=== PATIENT | male | born 1945 | race Caucasian/White ===

== ENCOUNTER 2021-07-31 14:26 | Outpatient (CLI) | payer MEDICARE, SELFPAY ==
--- NOTE | ~2021-07-31 | NM_ITS ---
EXAMINATION: NM thyroid scan w uptake DATE: 08/01/2021 15:32 INDICATION: Thyrotoxicosis COMPARISON: Thyroid ultrasound dated 10/01/[address] dated 11/05/2010 TECHNIQUE: 333 microcuries I-123 was administered orally in capsule form. Scintigraphic images of th e thyroid gland were obtained at 24 hours. Thyroid uptake was calculated by the technologist. FINDINGS: The thyroid uptake is 42.8% (normal 10-30%), with the right lobe measuring 39.7% uptake and the left 3.6%. Prominent increased uptake throughout the relatively enlarged right thyroid lobe which correspo nds to a similar large heterogeneous right thyroid mass on prior imaging suggesting a hyperfunctionin g nodule with suppression of uptake in the contralateral left thyroid lobe. IMPRESSION: 1. Increased total thyroid uptake which appears to result from a large hyperfunctioning right thyroi d mass with suppression of uptake in the left thyroid lobe. Reviewed, dictated and finalized at location A. IMPRESSION: 1. Increased total thyroid uptake which appears to result from a large hyperfu nctioning right thyroid mass with suppression of uptake in the left thyroid lob e.
== END 2021-07-31 14:27 | disposition home or self-care (01) ==
LOC: ANHIMG 14:31
PROVIDERS: PCP Family Medicine; Visit Provider Family Medicine
DX: E05.90 Thyrotoxicosis, unspecified without thyrotoxic crisis or storm (principal)
CPT/HCPCS: 78014; A9516

== ENCOUNTER 2021-08-14 13:41 | Outpatient (CLI) | payer MEDICARE, SELFPAY ==
--- NOTE | ~2021-08-14 | US_ITS ---
EXAMINATION: US FNA w image guidance DATE: 08/14/2021 14:43 INDICATION: Thyrotoxicosis with toxic single thyroid nodule TECHNIQUE: A time-out was performed to verify the patient's name, date of , and procedure to be performed . The procedure and its benefits and risks were discussed with the patient. Risks specifically discus sed included bleeding and infection. The patient understood the risks and agreed to proceed. The neck was prepped and draped in the usual sterile manner. 3 mL 1% lidocaine was used for local anesthesia . 5 passes were made with a 25G needle into the lesion. Appropriate needle location was documented with continuous sonographic guidance. The specimens were passed to the ocular care technologist in the room. A sterile bandage was applied. There were no immediate complications. FINDINGS: Grayscale ultrasound images demonstrate biopsy needles advanced into a 3.3 cm wider than tall solid h ypoechoic nodule with internal echogenic foci (TI-RADS 5, highly suspicious , FNA if >=1.0 cm, annual followup is >0.5 cm) in the right thyroid lobe which corresponds to the hyperfunctioning nodule iden tified on thyroid scintigraphy. IMPRESSION: 1. Successful ultrasound-guided fine needle aspiration of a 3.3 cm TI-RADS 5 right thyroid nodule of concern.. Reviewed, dictated and finalized at location A. IMPRESSION: 1. Successful ultrasound-guided fine needle aspiration of a 3.3 cm TI-RADS 5 r ight thyroid nodule of concern..
== END 2021-08-14 13:42 | disposition home or self-care (01) ==
PROVIDERS: PCP Family Medicine; Visit Provider Family Medicine
DX: E05.10 Thyrotoxicosis with toxic single thyroid nodule without thyrotoxic crisis or storm (principal)
CPT/HCPCS: 10005; 88173; 88305

== ENCOUNTER 2021-09-15 07:58 | Outpatient (CLI) | payer MEDICARE, SELFPAY ==
--- NOTE | 2021-09-15 08:00 | ECG_ITS ---
Measurements Intervals [place] Rate: 68 P: 66 IN: 198 QRS: 64 QRSD: 113 T: 54 QT: 398 QTc: 426 Interpretive Statements SINUS RHYTHM INTRAVENTRICULAR CONDUCTION DELAY BASELINE ARTIFACT- I, III, AVR, AVL BORDERLINE ECG Electronically Signed On 09-15-2021 8:55:19 [employer] by Javi Moore D.O.
[2021-09-15 09:02] LABS: Anion Gap 5 mmol/L (8-16); Blood Urea Nitrogen 22 mg/dL (9-20); Calcium 10.1 mg/dL (8.4-10.2); Carbon Dioxide 29 mmol/L (22-30); Chloride 106 mmol/L (98-107); Estimated Glomerular Filt Rate > 60; Glucose 106 mg/dL (65-110); Sodium 140 mmol/L (137-145)
== END 2021-09-15 07:59 | disposition home or self-care (01) ==
LOC: ANHSURGERY 08:01
PROVIDERS: Anesthesiology; PCP Family Medicine; Visit Provider Otolaryngology
DX: I10 Essential (primary) hypertension (principal); Z79.899 Other long term (current) drug therapy; Z01.818 Encounter for other preprocedural examination; I45.9 Conduction disorder, unspecified
CPT/HCPCS: 36415; 80048; 93005

== ENCOUNTER 2021-09-19 01:03 | Day surgery (SDC) | payer MEDICARE, SELFPAY ==
[2021-09-11 10:52] VITALS: BMI 29.2
--- NOTE | 2021-09-11 11:04 | PC.NURSE ---
Report to the Outpatient Waiting Room, entrance under the green pavilion located off [facility], at time _0600_ on date _09/19/21_. OR Time: _0730__. - You and your visitor will be asked a series of questions to screen for COVID 19 for your protection. - A mask is required within the hospital. - Only one visitor is allowed at this time. Patient visitors will be guided where to wait when not with patient. Preoperative COVID Testing Requirements: No COVID Test needed if: (proof is required; if not received patient will have Rapid Test prior to entry) - Patient has received COVID Vaccine at least 14 days prior to procedure date or - Patient has positive COVID test result within last 90 days of surgery date. COVID Test needed if above criteria is not met If not COVID vaccinated a COVID test must be conducted within 72 hours of surgery and patient is asked to isolate self from time of testing until procedure. You will go to the [facility] for your COVID testing. The [facility] is located at the corner of [address] [facility]. You will only be called if COVID results are positive and your surgeon may reschedule your elective surgery date. Patients may have clear liquids (water, carbonated beverages, clear teas, apple juice) until 3 hours prior to surgery with a maximum of 20 ounces. - No food from midnight until time of surgery - Infants may have breast milk until 4 hours before surgery, formula 6 hours prior to surgery. - Children will be allowed to drink immediately following surgery. If applicable, please bring a bottle or sippy cup to assist with drinking. Juice, water, soda, and popsicles are readily available. For infants on formula, please bring formula the day of surgery. Pacifiers are allowed. Take the following medications with a SIP of water the morning of surgery: ___NONE Medications to discontinue per physician __ASPIRIN & NAPROXEN PER DR. MENDIOLA, ALL VITAMINS & SUPPLEMENTS -3 DAYS PRIOR PER ANESTHESIA Date to take last dose___09/15/21 Please no make-up, nail new zealander, hairspray, perfume, deodorant, or body powder the day of surgery. No jewelry (including any body piercings) or valuables the day of surgery, leave them at home. Please take a shower or bath the night before, or the morning of, surgery with an antibacterial soap. Wear comfortable, loose fitting clothing. Children are encouraged to wear pajamas. - Jewelry must be removed prior to entering the operating room. Rings and piercings that are not removed may be cut off. - The hospital will not accept responsibility for valuables. - Please leave all valuables, including medications, at home the day of surgery. If you are going home after surgery, a licensed electric truck driver must drive you home. - NO public transportation without another adult. - We recommend that an adult stay with you for 24 hours following discharge. - We also recommend that you do not drive, make important decision, drink alcoholic beverages, or take any drugs that were not prescribed by your health care provider for at least 24 hours after your discharge time. For Pediatric surgeries, we recommend two adults accompany the child home (only one inside the building at this time). Follow any additional instructions given to you from your surgeon. Telephone instructions given to __PT___and asked if any additional questions and then verbalized understanding. Patient advised to call surgeon office or pre surgery nurse liaison [phone] if any additional questions.
--- NOTE | 2021-09-18 13:43 | WPDANESEPPF ---
Anes - Initial Pre Proc Eval Procedure: Operation Date: 09/19/21 07:30 Proposed Procedures p Right Thyroidectomy - Feliberto Ward MD Date/Time: 09/18/21 13:43 Surgeon: Feliberto Ward MD Pre Op Diagnosis: right thyroid nodule Patient Data Age: 75 Gender: M Height: 1.82 m Weight: 96.59 kg Allergies Allergy/AdvReac Type Severity Reaction Status Date / Time morphine Allergy Mild Nausea Verified 09/19/21 06:17 house dust Allergy Unknown Sneezing Verified 09/19/21 06:17 mold Allergy Unknown Sneezing Verified 09/19/21 06:17 Home Medications Medication Instructions Recorded Confirmed Type ascorbic acid (vitamin C) 500 mg 500 mg PO DAILY PRN 10/09/19 09/19/21 History tablet aspirin 81 mg tablet,delayed 81 mg PO DAILY 10/09/19 09/19/21 History release montelukast 10 mg tablet 10 mg PO DAILY PRN #90 tablet 02/19/20 09/19/21 Rx triamcinolone acetonide 55 mcg 1 spray INTRANASAL DAILY PRN 08/17/20 09/19/21 History nasal spray aerosol lisinopril 10 See Rx Instructions .ROUTE 12/09/20 09/19/21 Rx mg-hydrochlorothiazide 12.5 mg .COMPLEX #90 tablet tablet naproxen 500 mg tablet 500 mg PO BID PRN #60 tablet 02/02/21 09/19/21 Rx trazodone 50 mg tablet 50 mg PO .COMPLEX #180 tablet 02/02/21 09/19/21 Rx [id number]-[id number]-D3-C-Mn 1 cap PO DAILY 09/11/21 09/19/21 History loratadine [Claritin] 10 mg PO DAILY 09/11/21 09/19/21 History multivitamin [Multi-Vitamin] 1 tablet PO DAILY 09/11/21 09/19/21 History Patient hx anesthesia problems: none Family hx anesthesia problems: none Results Review: All pre-operative results and documents have been reviewed as part of the pre-operative evaluation. [facility] Past Medical History Medical History Arthritis of knee BMI 29.0-29.9,adult Chondrocalcinosis of left knee Essential (primary) hypertension Gastro-esophageal reflux disease without esophagitis Malignant neoplasm of brain, unspecified Occlusion and stenosis of unspecified carotid artery doppler in 2018 was normal Prostate cancer Thyroid nodule, toxic or with hyperthyroidism Surgical History Surgical History H/O brain surgery 2012, Dr. Bass H/O hernia repair H/O prostatectomy 1999 cancer History of back surgery Family History Family History Sibling Diabetes mellitus Family history of hypercholesterolemia Hypertension Family history of cardiovascular disease Cerebrovascular accident Family history of chronic obstructive pulmonary disease Father Family history of cardiovascular disease Mother Family history of cardiovascular disease Other Family history of osteoarthritis Social History Social History Smoking packs per day: 1 Smoking cigarettes per day: 20.0 Years smoked: 25 Smoking pack-years: 25.00 Smoking status: Former smoker Tobacco type: cigarettes Second hand tobacco smoke exposure: No Smoking end date: 08/04/00 Alcohol intake: current Drinks per week: 18 Substance use: never Substance use type: does not use Living arrangements: with friend(s) Gender identity (if verbalized by the patient): Male Spiritual care concerns: No Anes - Eval Final PreProcedure Day of Procedure 09/18/21 13:43 Patient weight: overweight Heart: regular rate and rhythm Lungs: clear to auscultation and normal air movement Airway: Mallampati scale class II Neurological: alert and oriented Last oral intake: >/= 8 hours ASA classification: III Emergent: no Anesthetic plan: proceed Anesthesia type and monitoring: general ETT Results Review: All pre-operative results and documents have been reviewed as part of the pre-operative evaluation. Informed Consent: The patient's anesthetic plan and its attendant risks and benefits were
[2021-09-19] VITALS (8 sets, daily range): BP systolic 126–149; BP diastolic 66–89; PULSE 74–89; RESP 12–18; TEMP 36.3–36.8; O2SAT 96–99
--- NOTE | 2021-09-19 05:42 | PM.HPGS ---
History of Present Illness History of Present Illness Consent: Risks, benefits, and alternatives have been discussed and questions answered. Patient agrees to proceed with procedure. Chief complaint: right thyroid nodule Narrative: Fransico Aaron is a 75 year old male with a that a right thyroid nodule suppressing the rest of the gland Review of Systems Review of Systems: All systems reviewed & are unremarkable except as noted in HPI and below PMFSH Past Medical History Medical History Arthritis of knee BMI 29.0-29.9,adult Chondrocalcinosis of left knee Essential (primary) hypertension Gastro-esophageal reflux disease without esophagitis Malignant neoplasm of brain, unspecified Occlusion and stenosis of unspecified carotid artery doppler in 2018 was normal Prostate cancer Thyroid nodule, toxic or with hyperthyroidism Surgical History Surgical History H/O brain surgery 2012, Dr. Bass H/O hernia repair H/O prostatectomy 1999 cancer History of back surgery Family History Family History Sibling Diabetes mellitus Family history of hypercholesterolemia Hypertension Family history of cardiovascular disease Cerebrovascular accident Family history of chronic obstructive pulmonary disease Father Family history of cardiovascular disease Mother Family history of cardiovascular disease Other Family history of osteoarthritis Social History Social History Smoking packs per day: 1 Smoking cigarettes per day: 20.0 Years smoked: 25 Smoking pack-years: 25.00 Smoking status: Former smoker Tobacco type: cigarettes Second hand tobacco smoke exposure: No Smoking end date: 08/04/00 Alcohol intake: current Drinks per week: 18 Substance use: never Substance use type: does not use Living arrangements: with friend(s) Gender identity (if verbalized by the patient): Male Spiritual care concerns: No Meds Home Medications and Allergies Home Medications Medication Instructions Recorded Confirmed Type ascorbic acid (vitamin C) 500 mg 500 mg PO DAILY PRN 10/09/19 09/11/21 History tablet aspirin 81 mg tablet,delayed 81 mg PO DAILY 10/09/19 09/11/21 History release montelukast 10 mg tablet 10 mg PO DAILY PRN #90 tablet 02/19/20 09/11/21 Rx triamcinolone acetonide 55 mcg 1 spray INTRANASAL DAILY PRN 08/17/20 09/11/21 History nasal spray aerosol lisinopril 10 See Rx Instructions .ROUTE 12/09/20 09/11/21 Rx mg-hydrochlorothiazide 12.5 mg .COMPLEX #90 tablet tablet naproxen 500 mg tablet 500 mg PO BID PRN #60 tablet 02/02/21 09/11/21 Rx trazodone 50 mg tablet 50 mg PO .COMPLEX #180 tablet 02/02/21 09/11/21 Rx [id number]-[id number]-D3-C-Mn 1 cap PO DAILY 09/11/21 09/11/21 History loratadine [Claritin] 10 mg PO DAILY 09/11/21 09/11/21 History multivitamin [Multi-Vitamin] 1 tablet PO DAILY 09/11/21 09/11/21 History Allergies Allergy/AdvReac Type Severity Reaction Status Date / Time house dust Allergy Unknown Sneezing Verified 09/11/21 10:45 mold Allergy Unknown Sneezing Verified 09/11/21 10:45 morphine Allergy Unknown Nausea Verified 09/11/21 10:45 Exam Narrative: Chest clear heart without murmurs abdomen soft palpable right thyroid nodule Assessment and Plan Additional Plan [place] is a right thyroidectomy
--- NOTE | 2021-09-19 05:44 | WPDHPUPDATE1 ---
History and Physical Update Update Date/Time: 09/19/21 05:44 History and Physical has been reviewed, including an updated exam of the patient. There are NO changes in the patient's condition. Risks, benefits, and alternatives have been discussed and questions answered. Patient agrees to proceed with procedure.
[2021-09-19] MEDS: ACETAMINOPHEN 500 MG TABLET 1000 MG PO (06:49)
[2021-09-19] MEDS: LACTATED RINGERS 1,000 ML 30 ML IV CONT (07:02)
[2021-09-19] MEDS: ceFAZolin 2 GM/D5W 50 ML 2 GM/50 ML BAG IVPB (07:24)
[2021-09-19] MEDS: LIDO 1%/EPINEPHRINE 1:100,000 50 ML VIAL INFILTRATE (07:39)
--- NOTE | 2021-09-19 08:28 | W.PM.PROC2 ---
Procedure Note - Detailed Date of Procedure 09/19/21 Pre-op Diagnosis right thyroid nodule Post-op Diagnosis same Procedure Performed Partial right thyroidectomy Surgeon Feliberto Ward MD Description of Procedure Patient was prepped and draped fashion general anesthesia low collar incision was made subplatysmal flaps elevated the right thyroid nodule was identified immediately upon retracting the strap muscles this nodule was removed as was a small nodule inferiorly sent for pathologic examination benign on both sides incision closed in layers of 4-0 chromic in the and glue
[2021-09-19] MEDS: ONDANSETRON INJ 4 MG/2 ML VIAL IV PUSH (08:51)
--- NOTE | 2021-09-19 09:52 | SUR.PHASEII ---
0952- Call to Dr. Ward to clarify when patient can resume home aspirin regimen. Per Dr. Ward patient can resume tomorrow 09/20/2021.
== END 2021-09-19 10:06 | disposition home or self-care (01) ==
PROVIDERS: PCP Family Medicine; Visit Provider Otolaryngology
PROC: (CPT 60210; principal; 2021-09-19 07:30)
DX: E04.2 Nontoxic multinodular goiter (principal); I10 Essential (primary) hypertension; K21.9 Gastro-esophageal reflux disease without esophagitis; Z85.46 Personal history of malignant neoplasm of prostate; Z85.841 Personal history of malignant neoplasm of brain; Z79.82 Long term (current) use of aspirin; Z87.891 Personal history of nicotine dependence
CPT/HCPCS: 60210; 36415; 80048; 88305; 88331; 93005; A9270; J0690; J1100; J1170; J2250; J2405; J2704; J3010; J7120

== ENCOUNTER 2022-02-02 09:30 | Outpatient (RCR) | payer MEDICARE, SELFPAY ==
--- NOTE | 2021-11-15 09:09 | PTOPEVAL ---
PHYSICAL THERAPY EVALUATION AND PLAN OF CARE 11-15-21 Thank you for referring Fransico Aaron to [facility], for the diagnosis of s/p R shoulder replacement. The office of Dr. Morfin was contacted and Joseph verbally gave the protocol for PT: Wean off of sling, NO shoulder IR, limit shoulder ER to 30', progression of exercises: passive, active assisted and active as tolerated. Fransico is scheduled to be seen for therapy? 2 x/week for 4 weeks. Please review, sign, date and return this plan of care PRO. I agree with and certify that the following plan of care is medically necessary. 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 Hx Other Neurological Disorders Yes: NEUROLOGIST DR CORDOVA Cardiovascular History Hx Hypertension Yes: meds Respiratory History Hx COVID-19 Yes: maybe had this fall Gastrointestinal History Hx Hernia Yes: RT INGUINAL HERNIA REPAIR Genitourinary History Hx Prostatectomy Yes: 2000 Musculoskeletal History Hx Arthritis Yes: knees, hips, hands Hx Other Musculoskeletal Disorders Yes: Restless leg syndrome, BILAT KNEE INJ Hematological History Hx Hematological Disorders No Significant History Endocrine History Hx Other Endocrine Disorders Yes: RT THYROID NODULE- removed HEENT History Hx Sinus Problems Yes: SEASONAL ALLERGIES Hx Other HEENT Disorders Yes: GLASSES Integumentary History Hx Excision Skin Lesion Yes: SKIN CA REMOVED FROM BACK Hx Other Skin Disorders Yes: SKIN CA Reproductive History Hx Other Reproductive Disorders Yes: VASECTOMY, LT BREAST LUMPECTOMY=BENIGN, ERECTILE DYSFUNCTION Psychosocial History Hx Psychiatric Disorders No Significant History Anesthesia History Hx Anesthesia Reactions No Significant History Other History Hx Cancer Yes: PROSTATE, SKIN Evaluation Information Problem Diagnosis s/p R total shoulder replacement Onset surgery 10-24-21 Subjective Information per pt- only restriction dr Query Text:As Reported By Patient/ office told him was not to Family abduct shoulder; is doing pendulum exercises and elbow flexion/extension for the past week; no longer using sling;
--- NOTE | 2021-12-08 10:07 | PCPTNOTE ---
pt called and canceled due to bad weather;
--- NOTE | 2021-12-12 13:20 | PTOPEVAL ---
PHYSICAL THERAPY RE-EVALUATION 12-12-21 Refer to the clinical summary below, for his status today, compared to the initial evaluation. Fransico has improved in all areas and remains motivated to improve his shoulder. PT treatment is scheduled to continue, 2x/wk for 5 weeks. Will progression to strengthening when orders received. He has a follow up dr appointment in 2 weeks. Thank you for referring Fransico Aaron to [facility] [place][Note 2].? Please review, sign, date and return this plan of care PRO. I agree with and certify that the following plan of care is medically necessary. Referring Physician Date Attending Provider: Tete Price PA-C Assessment Status Re-evaluation Subjective Information Fransico reports: sometimes Query Text:As Reported By Patient/ shoulder hurts and not sure Family why, but does not last very long; arm is stronger and more mobility; using arm more for showering, light home tasks; anxious to get shoulder better and golf again ; doing home exercises without any problems; Pain Pain Scale Used Numeric (1 - 10) Self Report Pain Assessment Right Shoulder(s) Reported Pain Level 0 Pain Description Aching Pain Frequency Chronic,Intermittent Other Pain Description anterior and lateral GH joint Lowest Pain Intensity 0 Greatest Pain Intensity 2 Pain Aggravating Factors Exercise/Activity Pain Score Pain Score 0: Self Report Additional Pain Score Comments have not used heat/ice lately, no needed; can sleep in bed, can lie on R side ~ 2-2 & 1/2 hours; Interventions Used Interventions Used By Clinicians Education,Exercise Pain Relief Interventions Used By Inactivity/Rest,Position Patient Change,Support of Extremity Other Alleviating Interventions no pain meds for shoulder--do take for back--naproxen; Scapular/ Shoulder Range of Motion Right Reason Not Measured WNL/Left Shoulder Flexion - Active 105 Shoulder Flexion - Passive 130 Shoulder Lateral Rotation - Active 25 Shoulder Lateral Rotation - Passive 30 Scapular/Shoulder Range of Motion R elbow, wrist and finger Comments ranges WNL and no pain; warm up exercises prior to measurement scaption: supine stretch 100' /active standing 70'; per protocol: ER to 30; and NO IR; Gross Upper Extremity Strength Comments function
--- NOTE | 2021-12-15 11:50 | PCPTNOTE ---
called Dr Morfin's office and left a message with career placement specialist - ? when can begin resisted/strengthening exercises and can pt start simulated golf swing? she stated they will check with and return call.
--- NOTE | 2021-12-18 11:46 | PCPTNOTE ---
LATE entry: received phone call 12-15-21 from office, stated pt can begin strengthening, theraband OK to use; can perform golf swing after 2 weeks of strengthening. This info was discussed with pt during treatment session today, 12-18-21
[2022-01-12 09:04] VITALS: BP_SYST 75
--- NOTE | 2022-01-12 09:53 | PTOPEVAL ---
PHYSICAL THERAPY RE-EVALUATION AND UPDATED PLAN OF CARE 01-12-22 Refer to the clinical summary below, for his status today, compared to the last reeval. The goals were partially achieved. Continue PT treatments 2x/wk for 3 weeks. Thank you for referring Fransico Aaron to [facility].? Please review, sign, date and return this updated plan of care [facility]. I agree with and certify that the following plan of care is medically necessary. Referring Physician Date Attending Provider: Tete Price, PAC Document 01/12/22 09:04 NOELLE (Rec: 01/12/22 09:53 NOELLE [id number] Subjective Information Fransico reports: shoulder is not Query Text:As Reported By Patient/ able to do as much as he Family would like with his shoulder-- reach up higher overhead; working on trying to use the R arm more around the house; have been doing some golf swings at home; released from but was not really told any further information; want to continue therapy; Pain Assessment Timing of Pain Assessment Timing of Pain Assessment Assessment Pain Scale Pain Scale Used Numeric (1 - 10) Self Report Pain Assessment Right Shoulder(s) Reported Pain Level 0 Pain Description Sharp Radicular Pain Location anterior and lateral shoulder; Pain Frequency Chronic,Intermittent Other Pain Description have short period of pain in shoulder3- 5 min,not able to relate to activity Lowest Pain Intensity 0 Greatest Pain Intensity 3 Pain Aggravating Factors Exercise/Activity Pain Behaviors Anxious,Guarding Pain Score Pain Score 0: Self Report Additional Pain Score Comments have bursitis of R elbow-- using ice on it Interventions Used Interventions Used By Clinicians Education,Exercise Pain Relief Interventions Used By Inactivity/Rest,Position Patient Change Other Alleviating Interventions no pain meds; no heat or ice; Upper Extremity Range of Motion Scapular/ Shoulder Range of Motion Right Reason Not Measured WNL/Left Shoulder Flexion - Active 120 Shoulder Flexion - Passive 140 Shoulder Abduction - Active 50 Shoulder Abduction - Passive 75 Shoulder Medial Rotation - Active thumb to R SIJ Query Text:Reach Behind the Back Shoulder Lateral Rotation - Active 30 Shoulder Lateral Rotation - Passive 35 Shoulder Lateral Rotation - Active fingers to back of head Query Text:Reach Behind the Head Scapular/Shoulder Range of Motion R elbow, wrist and fin
[2022-02-02 09:25] VITALS: BP_SYST 125
--- NOTE | 2022-02-02 10:21 | PTOPEVAL ---
PHYSICAL THERAPY DISCHARGE 02-02-22 Refer to the clinical summary below, for his status today, compared to the last reevaluation. The goals were partially achieved. He will be discharged at this time, and to continue to do his home exercise program. Thank you for referring Fransico Aaron to [facility].? Please review, sign, date and return this Discharge report PRO. I agree with and certify that the following plan of care is medically necessary. Referring Physician Date Attending Provider: PRASHANT Hinkle Subjective Information Fransico reports: shoulder is not Query Text:As Reported By Patient/ as tight in the front--looser Family and not as sore; is happy with the whole process and how the shoulder is doing; able to reach to top shelf in kitchen, using R arm more, sometimes hurts at the highest point of reaching, but OK; have hit practice golf balls in the back yard, due to weather, have not been out to the course yet; doing all the exercises at home, using green theraband; feel like ready to be done with therapy and continue at home with exercises; Pain Assessment Pain Scale Pain Scale Used Numeric (1 - 10) Self Report Pain Assessment Right Shoulder(s) Reported Pain Level 1 Pain Description Aching,Soreness Pain Frequency Chronic,Intermittent Lowest Pain Intensity 0 Greatest Pain Intensity 3 Pain Aggravating Factors Exercise/Activity Pain Score Pain Score 1: Self Report Additional Pain Score Comments saw yesterday about R elbow swelling---given zpac and to take naproxen 2x/day; Interventions Used Interventions Used By Clinicians Education,Exercise Pain Relief Interventions Used By Inactivity/Rest Patient Right Shoulder Flexion - Active 120 Shoulder Flexion - Passive 140 Shoulder Abduction - Active 110 Shoulder Abduction - Passive 125 Shoulder Medial Rotation - Active R palm to R SIJ Query Text:Reach Behind the Back Scapular/Shoulder Range of Motion supine R shoulder ER 40' Comments active ROM active shoulder ROM in standing/ passive in supine reports tight, but not pain with shoulder motions; decreased scapula
== END 2022-02-05 15:32 | disposition home or self-care (01) ==
LOC: ANHPT 09:30
PROVIDERS: PCP Family Medicine
DX: Z47.1 Aftercare following joint replacement surgery (principal); Z96.611 Presence of right artificial shoulder joint
CPT/HCPCS: 97035; 97110; 97112; 97140; 97161; 97530

== ENCOUNTER 2022-06-25 17:38 | Emergency (ER) | payer MEDICARE, SELFPAY ==
[2022-06-25 17:44] VITALS: BP 153/64; PULSE 82; RESP 16; TEMP 36.7; O2SAT 99
--- NOTE | 2022-06-25 18:07 | ED.WOUNDLAC ---
HPI - Wound/Laceration General Chief Complaint: Wound/Laceration Stated Complaint: lac left thumb Time Seen by Provider: 06/25/22 18:07 Source: patient and RN notes reviewed Mode of arrival: ambulatory Limitations: no limitations History of Present Illness HPI narrative: 76-year-old male presents to [facility] with a partial avulsion of skin to the lateral left thumb. Patient states he was cutting potatoes when the potato moved and he got his thumb. Per medical record last Tdap 08/04/2014 Related Data Home Medications Medication Instructions Recorded Confirmed ascorbic acid (vitamin C) 500 mg 500 mg PO DAILY PRN TAKES ONLY 10/09/19 06/25/22 tablet DURING WINTER MONTH aspirin 81 mg tablet,delayed 81 mg PO DAILY 10/09/19 06/25/22 release triamcinolone acetonide 55 mcg 1 spray intranasal DAILY PRN 08/17/20 06/25/22 nasal spray aerosol (Nasacort) Congestion glucosamine 500 1 cap PO DAILY 09/11/21 06/25/22 fc-pwwmpxxjh-fcafqylo comp 400 mg-D3 667 unit-C-Mn cap multivitamin 1 tablet PO DAILY 09/11/21 06/25/22 fexofenadine 180 mg tablet 180 mg PO DAILY 06/18/22 06/25/22 Allergies Allergy/AdvReac Type Severity Reaction Status Date / Time house dust Allergy Unknown Sneezing Verified 06/25/22 17:48 mold Allergy Unknown Sneezing Verified 06/25/22 17:48 morphine AdvReac Mild Nausea Verified 06/25/22 17:48 Review of Systems Review of Systems: All systems reviewed & are unremarkable except as noted in HPI and below Constitutional: Constitutional: Reports no additional constitutional complaints, Denies chills and Denies fever(s) Eyes: Eyes: Reports no additional eye complaints ENT: Reports system reviewed and no additional complaints, except as documented Cardiovascular: Cardiovascular: Reports no additional cardiovascular complaints Respiratory: Respiratory: Reports no additional respiratory complaints Gastrointestinal: Gastrointestinal: Reports no additional gastrointestinal complaints Musculoskeletal: Musculoskeletal: Reports no additional musculoskeletal complaints Integumentary/Breasts: Skin/Breast: Reports as per HPI (Laceration left thumb) Neurologic: Reports system reviewed and no additional complaints, except as documented Psychiatric: Psychiatric: Reports no additional psychiatric complaints Allergic/Immunologic: Allergic/Immunologic: Reports no additional allergic/immunologic complaints [facility] Past Medical History Medical History Arthritis of knee BMI 29.0-29.9,adult Chondrocalcinosis of left knee Essential (primary) hypertension Gastro-esophageal reflux disease without esophagitis Malignant neoplasm of brain, unspecified Occlusion and stenosis of unspecified carotid artery doppler in 2018 was normal Prostate cancer Thyroid nodule, toxic or with hyperthyroidism Surgical History Surgical History H/O brain surgery 2012, Dr. Bass H/O hernia repair H/O prostatectomy 1999 cancer History of back surgery Family History Family History Sibling Diabetes mellitus Family history of hypercholesterolemia Hypertension Family history of cardiovascular disease Cerebrovascular accident Family history of chronic obstructive pulmonary disease Father Family history of cardiovascular disease Mother Family history of cardiovascular disease Other Family history of osteoarthritis Social History Social History Smoking packs per day: 1 Smoking cigarettes per day: 20.0 Years smoked: 25 Smoking pack-years: 25.00 Smoking status: Former smoker Tobacco type: cigarettes Second hand tobacco smoke exposure: No Smoking end date: 08/04/00 Alcohol intake: current Drinks per week: 18 Substance use: never Substance use type: does not use Gender identity (if
[2022-06-25] MEDS: TETANUS/DIPHTHERIA TOXOIDS ADSORB 0.5 ML VIAL (*BKC) IM (19:05)
== END 2022-06-25 19:10 | disposition home or self-care (01) ==
PROVIDERS: Emergency Provider Nurse Practitioner; PCP Family Medicine
DX: S61.012A Laceration without foreign body of left thumb without damage to nail, initial encounter (principal); W45.8XXA Other foreign body or object entering through skin, initial encounter; Y93.G9 Activity, other involving cooking and grilling; Z23 Encounter for immunization; Z87.891 Personal history of nicotine dependence; I10 Essential (primary) hypertension; K21.9 Gastro-esophageal reflux disease without esophagitis; Z85.841 Personal history of malignant neoplasm of brain; Z85.46 Personal history of malignant neoplasm of prostate; Z90.79 Acquired absence of other genital organ(s)
CPT/HCPCS: 12001; 90471; 90714; 99213; G0463

== ENCOUNTER 2022-09-06 13:41 | Outpatient (CLI) | payer MEDICARE, SELFPAY ==
--- NOTE | ~2022-09-06 | NM_ITS ---
EXAMINATION: NM thyroid scan w uptake DATE: 09/07/2022 15:13 INDICATION: Hyperthyroidism. COMPARISON: Thyroid scintigraphy 07/24/2021, thyroid ultrasound 08/14/21 TECHNIQUE: 0.344 mCi I-123 was administered orally. Scintigraphic images of the thyroid gland were o btained at 24 hours. Thyroid uptake was calculated by the technologist. FINDINGS: The thyroid uptake is 46% (normal 10-30%), with the right lobe measuring 42% uptake and the left 4%. Increased activity in right thyroid lobe correlates with a nodule occupying the majority of the right thyroid lobe by ultrasound. Ultrasound-guided fine-needle aspiration on 08/15/2021 was benign. Parti al right thyroidectomy on 09/19/2021 was benign. IMPRESSION: 1. 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 Reviewed, dictated and finalized at location A.
== END 2022-09-06 13:42 | disposition home or self-care (01) ==
PROVIDERS: PCP Family Medicine; Visit Provider Family Medicine
DX: E05.10 Thyrotoxicosis with toxic single thyroid nodule without thyrotoxic crisis or storm (principal)
CPT/HCPCS: 78014; A9516

== ENCOUNTER 2023-01-07 11:11 | Outpatient (CLI) | payer MEDICARE, SELFPAY ==
--- NOTE | ~2023-01-07 | US_ITS ---
EXAMINATION: US thyroid DATE: 01/07/2023 11:59 INDICATION: Nontoxic single thyroid nodule. TECHNIQUE: Multiple ultrasound images of the thyroid were obtained. COMPARISON: Ultrasound 09/23/2010, 08/14/21 FINDINGS: The right thyroid lobe measures 6.0 x 3.5 x 3.7 cm. The left thyroid lobe measures 4.2 x 1.8 x 1.8 c m. In the right thyroid lobe, there is a 3.5 cm solid, isoechoic, wider than tall nodule with lobula r margin and punctate echogenic foci (TI-RADS TR5), stable from 10/01/10 and status post benign biops y on 08/15/21. In the left thyroid lobe, there is a 13 mm solid, isoechoic, wider than tall nodule wi th ill-defined margin and punctate echogenic foci (TR4), stable from 10/01/10. IMPRESSION: 1. Chronic benign thyroid nodules. Reviewed, dictated and finalized at location A. 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
== END 2023-01-07 11:12 | disposition home or self-care (01) ==
PROVIDERS: PCP Family Medicine; Visit Provider Otolaryngology
DX: E04.2 Nontoxic multinodular goiter (principal)
CPT/HCPCS: 76536

== ENCOUNTER 2023-02-08 08:58 | Outpatient (CLI) | payer MEDICARE, SELFPAY ==
--- NOTE | 2023-02-08 09:20 | ECG_ITS ---
Measurements Intervals [place] Rate: 73 P: 71 MA: 206 QRS: 70 QRSD: 122 T: 52 QT: 386 QTc: 427 Interpretive Statements SINUS RHYTHM MODERATE INTRAVENTRICULAR CONDUCTION DELAY BORDERLINE ECG COMPARED TO ECG 09/15/2021 08:21:52 NO SIGNIFICANT CHANGES Electronically Signed On 02-09-2023 14:50:03 CDT by Bj Pierre M.D.
[2023-02-08 09:46] LABS: Anion Gap 6 mmol/L (8-16); Blood Urea Nitrogen 16 mg/dL (9-20); Calcium 9.3 mg/dL (8.4-10.2); Carbon Dioxide 31 mmol/L (22-30); Chloride 100 mmol/L (98-107); Estimated Glomerular Filt Rate > 60; Glucose 139 mg/dL (65-110); Potassium 4.3 mmol/L (3.4-5.0); Sodium 137 mmol/L (137-145)
== END 2023-02-08 08:59 | disposition home or self-care (01) ==
LOC: ANHSURGERY 09:02
PROVIDERS: Anesthesiology; PCP Family Medicine; Visit Provider Otolaryngology
DX: I10 Essential (primary) hypertension (principal); Z51.81 Encounter for therapeutic drug level monitoring; Z01.818 Encounter for other preprocedural examination
CPT/HCPCS: 36415; 80048; 93005

== ENCOUNTER 2023-02-12 01:36 | Day surgery (SDC) | payer MEDICARE, SELFPAY ==
[2023-02-05 13:40] VITALS: BMI 29.9
--- NOTE | 2023-02-05 15:25 | PC.NURSE ---
Report to the Outpatient Waiting Room, entrance under the green pavilion located off [facility], at time __9:30AM on date __02/12/23 . Planned Procedure Time: __11:30AM . Time changes happen often and if your time is changed the preop area will call you the afternoon before. - You and your visitor will be asked to self-screen and do not enter if you have any COVID symptoms. - Only one visitor is requested with a max of two and NO children visitors are allowed at this time. - The patient visitor may be requested to leave or wait in car when not with patient due to distancing restrictions. - A mask is optional within the hospital at this time. Patients may have clear liquids (water, carbonated beverages, clear teas, apple juice) until 3 hours prior to surgery with a maximum of 20 ounces. - No food from midnight until time of surgery Take the following medications with a SIP of water the morning of surgery: ____METHIMAZOLE, NASAL SPRAY NEEDED DO NOT STOP ANY OF YOUR OTHER PRESCRIPTION MEDICATIONS PRIOR TO SURGERY ?EXCEPT THE FOLLOWING Medications to discontinue per physician __HOLD ASPIRIN PER DR WALKER(PT IS CALLING OFFICE TO [facility]). HOLD VITAMINS/SUPPLEMENTS 3 DAYS PER ANESTHESIA0 LAST DOSE 02/08/23 Please no make-up, nail estonian, hairspray, perfume, deodorant, or body powder the day of surgery. No jewelry (including any body piercings) or valuables the day of surgery, leave them at home. Please take a shower or bath the night before, or the morning of, surgery with an antibacterial soap. Wear comfortable, loose fitting clothing. Children are encouraged to wear pajamas. - Jewelry must be removed prior to entering the operating room. Rings and piercings that are not removed may be cut off. - The hospital will not accept responsibility for valuables. - Please leave all valuables, including medications, at home the day of surgery. If you are going home after surgery, a licensed jitney driver must drive you home. - NO public transportation without another adult if you receive anesthesia. - We recommend that an adult stay with you for 24 hours following discharge. - We also recommend that you do not drive, make important decision, drink alcoholic beverages, or take any drugs that were not prescribed by your health care provider for at least 24 hours after your discharge time. Follow any additional instructions given to you from your surgeon. If you or anyone in your household have experienced Covid symptoms in the past week, please notify your surgeon or the nurse liaison at the phone number below for possible testing. Telephone instructions given to __PATIENT and asked if any additional questions and then verbalized understanding. Patient advised to call surgeon office or pre surgery nurse liaison [phone] if any additional questions.
--- NOTE | 2023-02-11 14:06 | WPDANESEPPF ---
Anes - Initial Pre Proc Eval Procedure: Operation Date: 02/12/23 12:00 Proposed Procedures p Right Thyroidectomy - Victor M Marie MD Date/Time: 02/11/23 14:06 Surgeon: Victor M Marie MD Pre Op Diagnosis: Right Thyroid Nodule Patient Data Age: 77 Gender: M Height: 1.82 m Weight: 99 kg Allergies Allergy/AdvReac Type Severity Reaction Status Date / Time morphine AdvReac Mild Nausea Verified 02/12/23 10:22 Home Medications Medication Instructions Recorded Confirmed Type aspirin 81 mg tablet,delayed 81 mg PO DAILY 10/09/19 02/12/23 History release montelukast 10 mg tablet 10 mg PO DAILY PRN hayfever #90 02/19/20 02/12/23 Rx tabs triamcinolone acetonide 55 mcg 1 spray intranasal DAILY PRN 08/17/20 02/12/23 History nasal spray aerosol (Nasacort) Congestion glucosamine 500 1 cap PO DAILY 09/11/21 02/12/23 History al-ugvxbixtg-gvtkiraw comp 400 mg-D3 667 unit-C-Mn cap multivitamin 1 tablet PO DAILY 09/11/21 02/12/23 History fexofenadine 180 mg tablet 180 mg PO DAILY 06/18/22 02/12/23 History terbinafine HCl 250 mg tablet 250 mg PO DAILY #90 tabs 12/13/22 02/12/23 Rx lisinopril 10 1 tablet PO QAM 02/05/23 02/12/23 History mg-hydrochlorothiazide 12.5 mg tablet methimazole 5 mg tablet 5 mg PO TID 02/05/23 02/12/23 History naproxen 500 mg tablet 500 mg PO BID PRN Pain 02/05/23 02/12/23 History trazodone 50 mg tablet 100 mg PO HS 02/05/23 02/12/23 History Patient hx anesthesia problems: none Family hx anesthesia problems: none Results Review: All pre-operative results and documents have been reviewed as part of the pre-operative evaluation. 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 Bass H/O hernia repair H/O prostatectomy 1999 cancer History of back surgery History of right shoulder replacement Dr. Morfin 2020 Family History Family History Sibling Diabetes mellitus Family history of hypercholesterolemia Hypertension Family history of cardiovascular disease Cerebrovascular accident Family history of chronic obstructive pulmonary disease Father Family history of cardiovascular disease Mother Family history of cardiovascular disease Other Family history of osteoarthritis Social History Social History Smoking packs per day: 1 Smoking cigarettes per day: 20.0 Years smoked: 30 Smoking pack-years: 30.00 Smoking status: Former smoker Tobacco type: cigarettes Second hand tobacco smoke exposure: No Smoking end date: 05/04/13 Alcohol intake: current Drinks per week: 18 Substance use: never Substance use type: does not use Lack of Transportation: No Lack of Food: Never True Current Housing: I Have Housing Concerned About Future Housing: No Difficulty Paying Gas/Electric Bills: No Difficulty Paying for Meds: No Currently Unemployed: No Education: Master's Degree or Higher Difficulty w/ Childcare or Family Care: No Living arrangements: with family Additional living arrangements comments: KAREN Occupation/Education: retired Gender identity (if verbalized by the patient): Male Spiritual care concerns: No Anes - Eval Final PreProcedure Day of Procedure 02/11/23 14:06 Elliott
--- NOTE | 2023-02-11 15:41 | PM.IMHP ---
H&P: [facility] History of Present Illness Date/Time: 02/11/23 15:41 Chief Complaint: Hyperthyroidism right overactive thyroid nodule. 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 Bass H/O hernia repair H/O prostatectomy 1999 cancer History of back surgery History of right shoulder replacement Dr. Morfin 2020 Family History Family History Sibling Diabetes mellitus Family history of hypercholesterolemia Hypertension Family history of cardiovascular disease Cerebrovascular accident Family history of chronic obstructive pulmonary disease Father Family history of cardiovascular disease Mother Family history of cardiovascular disease Other Family history of osteoarthritis Social History Social History Smoking packs per day: 1 Smoking cigarettes per day: 20.0 Years smoked: 30 Smoking pack-years: 30.00 Smoking status: Former smoker Tobacco type: cigarettes Second hand tobacco smoke exposure: No Smoking end date: 05/04/13 Alcohol intake: current Drinks per week: 18 Substance use: never Substance use type: does not use Lack of Transportation: No Lack of Food: Never True Current Housing: I Have Housing Concerned About Future Housing: No Difficulty Paying Gas/Electric Bills: No Difficulty Paying for Meds: No Currently Unemployed: No Education: Master's Degree or Higher Difficulty w/ Childcare or Family Care: No Living arrangements: with family Additional living arrangements comments: KAREN Occupation/Education: retired Gender identity (if verbalized by the patient): Male Spiritual care concerns: No Meds Home Medications and Allergies Home Medications Medication Instructions Recorded Confirmed Type aspirin 81 mg tablet,delayed 81 mg PO DAILY 10/09/19 02/05/23 History release montelukast 10 mg tablet 10 mg PO DAILY PRN hayfever #90 02/19/20 02/05/23 Rx tabs triamcinolone acetonide 55 mcg 1 spray intranasal DAILY PRN 08/17/20 02/05/23 History nasal spray aerosol (Nasacort) Congestion glucosamine 500 1 cap PO DAILY 09/11/21 02/05/23 History yu-qktwmaceo-jbwopxfx comp 400 mg-D3 667 unit-C-Mn cap multivitamin 1 tablet PO DAILY 09/11/21 02/05/23 History fexofenadine 180 mg tablet 180 mg PO DAILY 06/18/22 02/05/23 History terbinafine HCl 250 mg tablet 250 mg PO DAILY #90 tabs 12/13/22 02/05/23 Rx lisinopril 10 1 tablet PO QAM 02/05/23 02/05/23 History mg-hydrochlorothiazide 12.5 mg tablet methimazole 5 mg tablet 5 mg PO TID 02/05/23 02/05/23 History naproxen 500 mg tablet 500 mg PO BID PRN Pain 02/05/23 02/05/23 History trazodone 50 mg tablet 100 mg PO HS 02/05/23 02/05/23 History Allergies Allergy/AdvReac Type Severity Reaction Status Date / Time morphine AdvReac Mild Nausea Verified 02/05/23 13:34 Exam Narrative: right-sided thyroid nodule Assessment and Plan Assessment and plan (1) Right thyroid nodule: Code(s): E04.1 - Nontoxic single thyroid nodule Status: Acute Assessment and Plan: plan operating
[2023-02-12] VITALS (9 sets, daily range): BP systolic 131–142; BP diastolic 65–81; PULSE 50–80; RESP 12–18; TEMP 36.6; O2SAT 94–100
--- NOTE | 2023-02-12 07:20 | WPDHPUPDATE1 ---
History and Physical Update Update Date/Time: 02/12/23 07:20 History and Physical has been reviewed, including an updated exam of the patient. There are NO changes in the patient's condition. Risks, benefits, and alternatives have been discussed and questions answered. Patient agrees to proceed with procedure.
[2023-02-12] MEDS: LACTATED RINGERS 1,000 ML 30 ML IV CONT ×2 (10:48→15:53)
[2023-02-12] MEDS: ACETAMINOPHEN 500 MG TABLET 1000 MG PO (10:48)
[2023-02-12] MEDS: ceFAZolin 2 GM/D5W 50 ML 2 GM/50 ML BAG IVPB (11:58)
[2023-02-12] MEDS: LIDO 1%/EPINEPHRINE 1:100,000 50 ML VIAL 10 ML INFILTRATE (12:17)
--- NOTE | 2023-02-12 16:47 | W.PM.PROC2 ---
Procedure Note - Detailed Date of Procedure 02/12/23 Pre-op Diagnosis Right Thyroid Nodule hyperactive thyroid nodule Post-op Diagnosis Same Procedure Performed Right thyroid lobectomy Surgeon Victor M Marie MD Anesthesia General Indications see above Findings very large right thyroid lobe. Nodules removed. Description of Procedure Patient identified consent verified. Patient brought operating room. Time-out performed. General anesthesia induced endotracheal tube secured. Nims monitoring. Patient prepped draped position names confirmed procedure confirmed 2nd time-out performed. Once he has 2 cc 1% lidocaine 1 100,000 parts epinephrine injected deep to pre drawn surgical incision over the previous scar about 5 cm long 2 fingerbreadths above the sternal notch. Fifteen blade utilized to go through the skin and dermis. Bovie utilized to go through the platysma dura hooks placed. Midline refer identified severely scarred down this took a long amount of time to get down to the thyroid itself the sternohyoid and sternothyroid. Thyroid identified. [employer] placed retracting the sternothyroid sternohyoid. They were dissected there top 1 cm off their attachments for further visualization. Thyroid lobe was very very large. The middle thyroid vein was ligated. Superior pole ligated. Thyroid was rotated medially. Sudhakar's ligament area was stuck inferior pole ligated inferior parathyroid identified saved. It appears the superior thyroid superior parathyroid was taken with the thyroid lobe. Cut was rotated. The recurrent laryngeal nerve was identified stimulated appears further rotated the ligament identified and cut. Bleeding was brisk at certain points probably total 50 cc loss throughout the case. At the end of the case bleeding was minimal the thyroid lobe was removed. Then the the case the recurrent laryngeal nerve did not stimulate near its entrance. That being said the other side did not monitor as well so perhaps the circuit was disrupted. Wound copiously irrigated Anesthesia Valsalva it. Again blood loss about 50 cc no obvious complications. At the end of the procedure the vocal cords were examined with glide scope the both moved. At the end the procedure voice was examined appeared to be normal. The wound was closed with 3 interrupted sutures after a 7 [place] drain was placed and sutured with a drain stitch 3-0 nylon. Deep layer of strap closed with 333 interrupted 3-0 Vicryl sutures. Both strap layers. Platysma and deep dermal layer closed with interrupted 3-0 Vicryl sutures. 4-0 running Monocryl placed the deep dermis skin glue placed. Patient tolerated the procedure well. I performed all dictated portions. No obvious complications. Patient tolerated the procedure well. Management of thyroid hormone and methimazole per PCP. Estimated Blood Loss -50.0 Drains Yes Packing No Pathology Yes Complications No immediate complications Condition Stable Disposition PACU [facility] Billing Surgery - Charge Forward: Surgery Billing
--- NOTE | 2023-02-12 18:20 | SUR.PHASEII ---
[id number] PATIENT AND SPOUSE INSTRUCTED AND DEMONSTRATED HOW TO EMPTY GONSALO DRAIN.
== END 2023-02-12 18:00 | disposition home or self-care (01) ==
PROVIDERS: PCP Family Medicine; Visit Provider Otolaryngology
PROC: (CPT 60220; principal; 2023-02-12 11:30)
DX: C73 Malignant neoplasm of thyroid gland (principal); E05.90 Thyrotoxicosis, unspecified without thyrotoxic crisis or storm; I10 Essential (primary) hypertension; K21.9 Gastro-esophageal reflux disease without esophagitis; Z85.841 Personal history of malignant neoplasm of brain; Z85.46 Personal history of malignant neoplasm of prostate; Z87.891 Personal history of nicotine dependence; Z79.82 Long term (current) use of aspirin; E66.9 Obesity, unspecified; Z68.30 Body mass index [BMI] 30.0-30.9, adult
CPT/HCPCS: 60220; 36415; 80048; 88307; 88342; 93005; A9270; J0330; J0690; J1100; J1170; J2405; J2704; J3010; J7120

== ENCOUNTER 2023-08-12 14:38 | Outpatient (CLI) | payer MEDICARE, SELFPAY ==
--- NOTE | ~2023-08-12 | MR_ITS ---
EXAMINATION: MR lumbar spine wo con DATE: 08/12/2023 15:22 INDICATION: Low back pain, unspecified. TECHNIQUE: Magnetic resonance imaging (MRI) of the lumbar spine was performed without intravenous con trast. Sequences included sagittal T2-weighted FSE, sagittal T2-weighted FS FSE, sagittal T1-weighted FSE, and axial T2-weighted FSE. COMPARISON: Lumbar spine radiographs 08/01/2023 FINDINGS: There is 8 degrees dextrocurvature of thoracolumbar spine. There is 3 mm retrolisthesis of L1 on L2, L2 on L3, and L5 on S1. There is mild chronic anterior wedging of T12-L2 vertebral bodies. There is mildly decreased disc height at L1-L2 and L2-L3, severely decreased disc height at L3-L4, mo derately decreased disc height at L4-L5, and severely decreased disc height at L5-S1. The distal spin al cord signal intensity is normal. The conus medullaris is at L1-L2. The following disc levels are s pecifically discussed: L1-L2: The disc is bulging. There is moderate bilateral facet joint osteoarthritis. There is mild deep ateral neural foraminal stenosis. There is mild central canal stenosis. L2-L3: The disc is bulging. There is mild bilateral facet joint osteoarthritis. There is mild bilater al neural foraminal stenosis. There is mild central canal stenosis. L3-L4: The disc is bulging and has an annular fissure. There is mild bilateral facet joint osteoarthr itis. There is mild bilateral neural foraminal stenosis. There is mild central canal stenosis. L4-L5: The disc is bulging and has an annular fissure. There is moderate right facet joint osteoarthr itis. There is moderate bilateral neural foraminal stenosis. There is mild central canal stenosis wit h posterior decompression. L5-S1: The disc is bulging. There is mild bilateral facet joint osteoarthritis. There is mild bilater al neural foraminal stenosis. There is mild central canal stenosis. IMPRESSION: 1. Severe lumbar spondylosis. Reviewed, dictated and finalized at location A.
== END 2023-08-12 14:39 | disposition home or self-care (01) ==
PROVIDERS: PCP Family Medicine; Visit Provider Orthopaedic Surgery
DX: M47.896 Other spondylosis, lumbar region (principal)
CPT/HCPCS: 72148

== ENCOUNTER 2023-10-13 13:41 | Outpatient (CLI) | payer MEDICARE, SELFPAY ==
--- NOTE | ~2023-10-13 | MR_ITS ---
MRI of the left hip Clinical history: Pain Technique: Coronal T1-weighted, T2-weighted, and proton-density fat-sat images, and axial T1-weighted and proton-density fat-sat images were acquired through the pelvis. Coronal T2-weighted images and c oronal, axial, and sagittal proton-density fat-sat images were acquired through the left hip. Findings: There is no fracture, avascular necrosis, or transient suppresses of either hip. There is s evere left hip joint osteoarthritis, with diffuse high-grade chondromalacia, joint space narrowing, e specially superiorly, and subchondral cystic change in the superior femoral head and superolateral ac etabulum. Small to moderate left hip joint effusion is present, presumably reactive. There is extensi ve degenerative tearing of the left acetabular labrum. There is mild to moderate degenerative change of the right hip joint, with mild superior joint space narrowing and early subchondral cystic change in the superior right acetabulum. No right hip joint ef fusion. No muscle atrophy or edema seen about the pelvis or left hip. Visualized tendons are intact. No bursi tis. No other fluid collection or mass lesion seen. IMPRESSION: Severe left hip joint osteoarthritis, as detailed above. Mild to moderate right hip joint osteoarthritis, as detailed above. Small to moderate left hip joint effusion, likely reactive. Reviewed, dictated and finalized at location M. DRESSER
== END 2023-10-13 13:42 | disposition home or self-care (01) ==
PROVIDERS: PCP Family Medicine; Visit Provider Orthopaedic Surgery
DX: M16.12 Unilateral primary osteoarthritis, left hip (principal); M25.452 Effusion, left hip
CPT/HCPCS: 73721

== ENCOUNTER 2023-11-08 13:45 | Outpatient (CLI) | payer MEDICARE, SELFPAY ==
--- NOTE | ~2023-11-08 | XR_ITS ---
EXAMINATION: XR lg joint inject/asp w image DATE: 11/08/2023 14:47 INDICATION: Left hip osteoarthritis presenting with left hip pain TECHNIQUE: A time-out was performed to verify the patient's name, date of , and procedure to b e performed. The procedure including the risks, benefits, and alternatives was discussed with the pat ient. Risks discussed included bleeding and infection. The patient understood the risks and agreed to proceed. The skin overlying the left hip joint was prepped and draped in usual sterile fashion. An esthetic was administered with 1% lidocaine subcutaneously. A 22 G needle was advanced under fluoros copic guidance into the joint. Injection of 1 mL of Omnipaque 240 confirmed intra-articular position of the needle. Subsequently, injectate consisting of 3 mL of a 2:1 mixture of 1% lidocaine: 10 mg/m L Kenalog for a total dosage of 10 mg Kenalog was instilled. Washout of contrast was seen confirming intra-articular administration. The needle was removed and the entry site was cleaned and dressed. T here were no immediate complications. Fluoroscopy exposure time was 0.1 minutes. The total number of images was 1. Total DAP was 0.982 Gycm^2 FINDINGS: Real-time fluoroscopy demonstrates the needle in the left hip joint. Patient's pain prior t o procedure:05/13. Patient's pain following the procedure: 12/14. Multiple surgical clips in the left hemipelvis. IMPRESSION: 1. Successful left hip joint injection of local anesthetic and steroid with decrease in the patient's presenting pain. Reviewed, dictated and finalized at location A. INVENTORY CONTROL EXECUTIVE IMPRESSION: 1. Successful left hip joint injection of local anesthetic and steroid with dec rease in the patient's presenting pain.
== END 2023-11-08 13:46 | disposition home or self-care (01) ==
PROVIDERS: PCP Family Medicine; Visit Provider Orthopaedic Surgery
DX: M16.12 Unilateral primary osteoarthritis, left hip (principal)
CPT/HCPCS: 20610; 77002; J3301

== ENCOUNTER 2023-12-10 15:03 | Outpatient (CLI) | payer MEDICARE, SELFPAY ==
--- NOTE | ~2023-12-10 | XR_ITS ---
EXAM: XR hip LT 2V w AP pelvis DATE: 12/10/2023 15:28 HISTORY: M16.12 - Unilateral primary osteoarthritis, left hip . COMPARISON: 10/03/2023. FINDINGS: Pelvic surgical clips. Severe degenerative lumbar disc disease. Severe left and mild right hip osteoarthritis. No fracture or dislocation. Pelvic phleboliths. No lytic or blastic lesion. IMPRESSION: Severe left hip osteoarthritis. Reviewed, dictated and finalized at location K. NICAL AID
== END 2023-12-10 15:04 | disposition home or self-care (01) ==
PROVIDERS: PCP Family Medicine; Visit Provider Orthopaedic Surgery
DX: M16.12 Unilateral primary osteoarthritis, left hip (principal)
CPT/HCPCS: 73502

== ENCOUNTER 2023-12-12 11:43 | Outpatient (CLI) | payer MEDICARE, SELFPAY ==
--- NOTE | 2023-12-12 12:17 | ECG_ITS ---
Measurements Intervals [place] Rate: 71 P: 62 [place]: 199 QRS: 70 QRSD: 111 T: 67 QT: 382 QTc: 416 Interpretive Statements SINUS RHYTHM MODERATE INTRAVENTRICULAR CONDUCTION DELAY [110+ ms QRS DURATION] COMPARED TO ECG 02/08/2023 09:29:04 NO SIGNIFICANT CHANGES Electronically Signed On 12-12-2023 15:02:34 RIPRAP MAN by Migdalia Barlow M.D.
== END 2023-12-12 11:44 | disposition home or self-care (01) ==
LOC: ANHCARD 11:46
PROVIDERS: PCP Family Medicine; Visit Provider Orthopaedic Surgery
DX: M16.12 Unilateral primary osteoarthritis, left hip (principal)
CPT/HCPCS: 93005

== ENCOUNTER 2024-02-14 12:43 | Outpatient (CLI) | payer MEDICARE, SELFPAY ==
--- NOTE | ~2024-02-14 | MR_ITS ---
EXAMINATION: MR brain/brain stem wo/w con DATE: 02/14/2024 13:28 INDICATION: Neoplasm of brain, unspecified. TECHNIQUE: Magnetic resonance imaging (MRI) of the brain and brainstem was performed without and with 19 mL MultiHance intravenous contrast. COMPARISON: None. 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 There is chronic encephaloma lacia in right frontal lobe. There are scattered areas of nonspecific increased T2-weighted signal in tensity in the cerebral white matter, which is within normal limits for the patient's age. There is n o intracranial hemorrhage, acute infarction, or abnormal intracranial mass lesion. The ventricles are normal in size. The orbits are normal. There is mild mucosal thickening in the paranasal sinuses. Th ere is a mucous retention cyst in right maxillary sinus. The mastoid air cells are normal. There are changes of right-sided craniotomy. IMPRESSION: 1. 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 Reviewed, dictated and finalized at location A. IMPRESSION: 1. 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
== END 2024-02-14 12:44 | disposition home or self-care (01) ==
LOC: ANHIMG 12:44
PROVIDERS: PCP Family Medicine; Visit Provider Family Medicine
DX: C71.9 Malignant neoplasm of brain, unspecified (principal); R42 Dizziness and giddiness
CPT/HCPCS: 70553; A9577

== ENCOUNTER 2024-02-19 09:50 | Outpatient (CLI) | payer MEDICARE, SELFPAY ==
[2024-02-19 11:06] LABS: Urine Cotinine NEGATIVE
[2024-02-19 12:05] LABS: MRSA (PCR) NOT DETECTED (NOT DETECTE)
[2024-02-19 13:18] LABS: Hemoglobin A1C 5.4 % (<5.7)
== END 2024-02-19 09:51 | disposition home or self-care (01) ==
LOC: ANHSURGERY 09:54
PROVIDERS: PCP Family Medicine; Visit Provider Orthopaedic Surgery
DX: M16.12 Unilateral primary osteoarthritis, left hip (principal); Z01.818 Encounter for other preprocedural examination
CPT/HCPCS: 80307; 83036; 87641

== ENCOUNTER 2024-03-10 00:07 | Day surgery (SDC) | payer MEDICARE, SELFPAY ==
--- NOTE | 2024-02-19 10:18 | PC.NURSE ---
Report to the Outpatient Waiting Room, entrance under the green pavilion located off [facility], at time ___30____ on date __03/10/24 . Planned Procedure Time: __1030 . Time changes happen often and if your time is changed the preop area will call you the afternoon before. - You and your visitor will be asked to self-screen and do not enter if you have any COVID symptoms. - A mask is optional within the hospital at this time. Patients may have clear liquids (water, carbonated beverages, clear teas, apple juice) until 3 hours prior to surgery( 7:30 AM) with a maximum of 20 ounces. - No food from midnight until time of surgery - Infants may have breast milk until 4 hours before surgery, infant formula 6 hours prior to surgery. - Children will be allowed to drink immediately following surgery. If applicable, please bring a bottle or sippy cup to assist with drinking. Juice, water, soda, and popsicles are readily available. For infants on formula, please bring formula the day of surgery. Pacifiers are allowed. Take the following medications with a SIP of water the morning of surgery: __LEVOTHYROXINE DO NOT STOP ANY OF YOUR OTHER PRESCRIPTION MEDICATIONS PRIOR TO SURGERY ?EXCEPT THE FOLLOWING Medications to discontinue per physician __PT STATES__HOLD ASPIRIN, NAPROXEN AND VITAMINS AND SUPPLEMENTS 7 DAYS PRE OP PER DR SALINAS_LAST DOSE03/03/24 MAY TAKE TYLENOL IF NEEDED FOR PAIN Please no make-up, nail [place], hairspray, perfume, deodorant, or body powder the day of surgery. No jewelry (including any body piercings) or valuables the day of surgery, leave them at home. Please take a shower or bath the night before, or the morning of, surgery with an antibacterial soap. Wear comfortable, loose fitting clothing. Children are encouraged to wear pajamas. - Jewelry must be removed prior to entering the operating room. Rings and piercings that are not removed may be cut off. - The hospital will not accept responsibility for valuables. - Please leave all valuables, including medications, at home the day of surgery. If you are going home after surgery, a licensed team truck driver must drive you home. - NO public transportation without another adult if you receive anesthesia. - We recommend that an adult stay with you for 24 hours following discharge. - We also recommend that you do not drive, make important decision, drink alcoholic beverages, or take any drugs that were not prescribed by your health care provider for at least 24 hours after your discharge time. Follow any additional instructions given to you from your surgeon. If you or anyone in your household have experienced Covid symptoms in the past week, please notify your surgeon or the nurse liaison at the phone number below for possible testing. VERBAL AND WRITTEN instructions given to _PATIENT and asked if any additional questions and then verbalized understanding. Patient advised to call surgeon office or pre surgery nurse liaison [phone] if any additional questions.
[2024-02-19 10:42] VITALS: BP 130/72; PULSE 72; RESP 18; TEMP 36.5; O2SAT 98; BMI 30.4
[2024-03-10] VITALS (14 sets, daily range): BP systolic 125–178; BP diastolic 60–101; PULSE 66–98; RESP 9–19; TEMP 35.3–36.8; O2SAT 95–100
--- NOTE | ~2024-03-10 | XR_ITS ---
EXAMINATION: XR hip LT min 2V DATE: 03/10/2024 09:38 INDICATION: Left hip arthroplasty. Postop. TECHNIQUE: 2 views of left hip on 3 radiographs were obtained. COMPARISON: Left hip radiographs 02/19/2024 FINDINGS: There is a total left hip arthroplasty in near-anatomic alignment. No fracture. Surgical cl ips overlie the pelvis. Soft tissue gas is noted, consistent with recent surgery. IMPRESSION: 1. Total left hip arthroplasty in near-anatomic alignment. Reviewed, dictated and finalized at location A.
[2024-03-10] MEDS: ACETAMINOPHEN 500 MG TABLET 1000 MG PO (06:43)
[2024-03-10] MEDS: TRANEXAMIC ACID 1,000MG/ISO100 1,000 MG/100 ML BAG 200 MG IVPB (07:09)
[2024-03-10] MEDS: LACTATED RINGERS 1,000 ML 30 ML IV CONT ×2 (07:09→09:17)
--- NOTE | 2024-03-10 07:12 | WPDANESEPPF ---
Anes - Initial Pre Proc Eval Procedure: Operation Date: 03/10/24 07:30 Proposed Procedures p Left Total Hip Arthroplasty - Myron Mallory MD Date/Time: 03/10/24 07:12 Surgeon: Myron Mallory MD Pre Op Diagnosis: primary oa left hip Patient Data Age: 78 Gender: M Height: 1.8 m Weight: 99.3 kg Last Vital Signs Temp 36.7 C 03/10/24 07:06 Pulse 76 03/10/24 07:06 Resp 16 03/10/24 07:06 BP 139/79 03/10/24 07:06 Pulse Ox 97 03/10/24 07:06 O2 Del Method Room Air 03/10/24 07:06 Allergies Allergy/AdvReac Type Severity Reaction Status Date / Time morphine AdvReac Mild Nausea Verified 03/10/24 07:04 Home Medications Medication Instructions Recorded Confirmed Type aspirin 81 mg tablet,delayed 81 mg PO DAILY 10/09/19 03/10/24 History release triamcinolone acetonide 55 mcg 1 spray intranasal DAILY PRN 08/17/20 03/10/24 History nasal spray aerosol (Nasacort) Congestion glucosamine 500 1 cap PO DAILY 09/11/21 03/10/24 History mh-vjdcsfrvt-vsbobzfb comp 400 mg-D3 667 unit-C-Mn cap multivitamin 1 tablet PO DAILY 09/11/21 03/10/24 History fexofenadine 180 mg tablet 180 mg PO DAILY 06/18/22 03/10/24 History lisinopril 10 1 tablet PO QAM #90 tabs 12/24/23 03/10/24 Rx mg-hydrochlorothiazide 12.5 mg tablet levothyroxine 112 mcg tablet 112 mcg PO DAILY #90 tabs 01/07/24 03/10/24 Rx naproxen 500 mg tablet 500 mg PO BID PRN Pain #180 tabs 01/21/24 03/10/24 Rx lorazepam 0.5 mg tablet 0.5 mg PO ONCE #2 tabs 02/06/24 03/10/24 Rx montelukast 10 mg tablet 10 mg PO DAILY 02/19/24 03/10/24 History trazodone 50 mg tablet 100 mg PO HS RLS #180 tabs 02/25/24 03/10/24 Rx Patient hx anesthesia problems: none Family hx anesthesia problems: none Results Review: All pre-operative results and documents have been reviewed as part of the pre-operative evaluation. 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 Bass H/O hernia repair H/O prostatectomy 1999 cancer History of back surgery History of partial thyroidectomy History of right shoulder replacement Dr. Morfin 2020 Family History Family History Sibling Diabetes mellitus Family history of hypercholesterolemia Hypertension Family history of cardiovascular disease Cerebrovascular accident Family history of chronic obstructive pulmonary disease Father Family history of cardiovascular disease Mother Family history of cardiovascular disease Other Family history of osteoarthritis Social History Social History Smoking packs per day: 1 Smoking cigarettes per day: 20.0 Years smoked: 30 Smoking pack-years: 30.00 Smoking status: Former smoker Tobacco type: cigarettes, pipe and cigars Second hand tobacco smoke exposure: No Smoking end date: 11/04/12 Additional smoking assessment comments: DENIES ANY FORM OF TOBACCO USE Alcohol intake: current Drinks per week: 14 Substance use: never Substance use type: does not use Current Housing: Decline to Answer Concerned About Future Housing: Decline to Answer Difficulty Paying Gas/Electric Bills: Decline to Answer Difficulty Paying for Meds: Decline to Answe
--- NOTE | 2024-03-10 07:13 | WPDHPUPDATE1 ---
History and Physical Update Update Date/Time: 03/10/24 07:13 History and Physical has been reviewed, including an updated exam of the patient. There are NO changes in the patient's condition. Risks, benefits, and alternatives have been discussed and questions answered. Patient agrees to proceed with procedure.
[2024-03-10] MEDS: ceFAZolin 2 GM/D5W 50 ML 2 GM/50 ML BAG IVPB ×2 (07:45→16:42)
[2024-03-10] MEDS: SODIUM CHLORIDE 0.9% IV 37.7 ML, MORPHINE SULFATE INJ (*CRX) 2 MG, ROPivacaine HCL 1% 2... INFILTRATE (08:22)
[2024-03-10] MEDS: TRANEXAMIC ACID 1,000 MG/10 ML AMPUL 1000 MG IV PUSH (08:36)
--- NOTE | 2024-03-10 09:28 | W.PM.PROC2 ---
Procedure Note - Detailed Date of Procedure 03/10/24 Pre-op Diagnosis primary oa left hip Post-op Diagnosis Same Procedure Performed Left Total Hip Arthroplasty Surgeon Myron Mallory MD Catering Driver Zoey Lambert PA-C Anesthesia General Findings Slightly shallow [place] acetabulum, however excellent bone quality and implant fixation. Fairly steady blood loss from bone marrow. Estimated 600 mL. Aqua Mantis used where able. Description of Procedure The patient was given preoperative antibiotics. A general anesthetic was administered. The patient was carefully placed in the lateral decubitus position on the PEG board. The shoulders and hips were carefully positioned for component and leg length positioning reference. The hip was prepped and draped in the usual sterile fashion. A longitudinal incision was created over the posterior aspect of the greater trochanter. Careful dissection was brought down through the deep fascia with electrocautery. A minimally invasive optimized posterior approach to the hip was performed. The short external rotators and capsule were taken down in an L-shaped capsulotomy. The tissue was tagged for later repair using number 2 high strength suture. The femoral neck was measured and taken in situ. The femoral head was removed. The acetabulum was carefully exposed. The inferior capsule was released. The labrum was resected. The acetabulum was sequentially reamed to the intended cup size. The cup was impacted into position with excellent press-fit. Typical anatomic landmarks, including the bony contact points as well as the inferior transverse acetabular ligament were used to confirm cup positioning with preoperative templating. Attention was turned to the femur, which was carefully exposed. The hip was reamed and then broached sequentially. Excellent press-fit was obtained with the broach. The hip was trialed. Measurements were utilized, including the lesser trochanter as well as the center of the femoral head and the tip of the trochanter, and excellent assessment of the offset and leg lengths were confirmed. The real component was impacted into position. Trialing confirmed appropriate leg length and offset with soft tissue balancing as well apparent feel of the leg, both at the knee and the heel. Soft tissues were assessed using the the iliotibial band. Reduction of the posterior capsule and external rotators were also used as a secondary assessment. The hip was copiously irrigated with pulsatile lavage periodically throughout the procedure. The real components were then assembled and reduced. The hip was stable throughout typical maneuvers, including extension, external rotation to 70 degrees, the position of sleep as well as flexion to 90 degrees with internal rotation past 30 degrees. The shake test confirmed stability without impingement. Osteophytes were removed as necessary. The short external rotators and capsule were repaired back to the posterior trochanter through drill holes. The deep fascia was repaired with running number 2 barbed suture, followed by 2-0 Stratafix suture and 3-0 Stratafix suture in the dermis. Steri-Strips were placed on the skin, followed by a sterile occlusive dressing. There were no complications. Meticulous hemostasis was maintained with the AquaMantys device. The patient was brought to the recovery room in stable condition. There were no complications. Physician therapeutic assistant, Zoey Lambert PA-C, required for surgery; including patient positioning, draping, tissue retraction, maintaining instrument position, hip dislocation/ relocation, wound closure, and dressing placement. Implants The Accolade II hip stem, 127 degree size 5 , was utilized with excellent press-fit. The 54 mm Trident II acetabular component was impacted with excellent press-fit stability. 10 degree elevated polyethylene liner the +2.5, 36 mm Biolox ceramic femoral head was utilized. Estimated Blood Loss
[2024-03-10] MEDS: fentaNYL CITRATE INJ (*CRX) 100 MCG/2 ML VIAL 25 MCG IV PUSH ×4 (10:13→10:30)
--- NOTE | 2024-03-10 11:28 | ADMGEN ---
This patient, Fransico Aaron, was admitted to [facility] Surg Room 307-02. Patient/family oriented to hospital policies and general routines including ID bracelet, bed and alarms, visiting hours, pain management, procedures, bathroom and other care routines, personal items, smoking policy, room service/diet, and visiting hours. Information on how to activate the Rapid Response Team has been discussed. Patient/Family are encouraged to report perceived risks to care and to ask questions if they do not understand what they are told or what they should do.
[2024-03-10] MEDS: ACETAMINOPHEN 325 MG TABLET 650 MG PO ×2 (11:53→17:36)
[2024-03-10] MEDS: MONTELUKAST SODIUM 10 MG TABLET PO (11:53)
[2024-03-10] MEDS: lisinopriL 10 MG TABLET PO (11:53)
[2024-03-10] MEDS: SENNA/DOCUSATE SODIUM TABLET 2 TAB PO (16:44)
[2024-03-10] MEDS: traMADol HCL (*CRX) 50 MG TABLET PO (20:00)
[2024-03-10] MEDS: FAMOTIDINE 20 MG TABLET PO (20:15)
[2024-03-10] MEDS: traZODone HCL 50 MG TABLET 100 MG PO (20:15)
[2024-03-10] MEDS: ASPIRIN 81 MG ENTERIC TABLET PO (20:15)
[2024-03-10] MEDS: oxyCODONE/ACETAMINOPHEN (*CRX) 5-325 MG TABLET 1 TABLET PO (22:38)
[2024-03-11 00:05] VITALS: BP 106/51; PULSE 74; RESP 16; TEMP 36.7; O2SAT 96
[2024-03-11] MEDS: ceFAZolin 2 GM/D5W 50 ML 2 GM/50 ML BAG IVPB ×2 (00:40→08:48)
[2024-03-11] MEDS: ACETAMINOPHEN 325 MG TABLET 650 MG PO ×2 (00:40→05:28)
[2024-03-11 04:11] VITALS: BP 149/70; PULSE 85; RESP 16; TEMP 36.5; O2SAT 100
[2024-03-11] MEDS: oxyCODONE/ACETAMINOPHEN (*CRX) 5-325 MG TABLET 1 TABLET PO (04:20)
[2024-03-11] MEDS: LEVOTHYROXINE SODIUM 112 MCG TABLET PO (05:29)
[2024-03-11 06:31] LABS: Basophils Absolute Auto 0.1 K/mm3 (0.0-0.1); Basophils Percent Auto 0.6 % (0.2-1.2); Eosinophils Absolute Auto 0.1 K/mm3 (0-0.3); Eosinophils Percent Auto 0.8 % (0-4.4); Hematocrit 33.5 % (42.0-52.0); Hemoglobin 10.9 g/dL (14.0-18.0); Immature Granulocyte Absolute 0.04 K/mm3 (0.00-0.031); Immature Granulocyte Percent A 0.4 % (0-0.5); Lymphocytes Absolute Auto 1.17 K/mm3 (0.9-3.2); Lymphocytes Percent Auto 12.4 % (18.3-44.2); Mean Corpuscular HGB Conc 32.5 g/dl (32-36); Mean Corpuscular Hemoglobin 29.5 pg (26-34); Mean Corpuscular Volume 90.5 fl (80-100); Mean Platelet Volume 10.3 fl (7.4-10.4); Monocytes Absolute Auto 0.8 K/mm3 (0.1-0.6); Monocytes Percent Auto 8.8 % (2.6-8.5); Neutrophils Absolute Auto 7.3 K/mm3 (1.3-6.7); Platelet Count Result 183 k/mm3 (150-375); Red Cell Distribution Width 13.2 % (11.5-14.5); White Blood Count 9.5 K/mm3 (4.5-10.0)
[2024-03-11 06:41] LABS: Carbon Dioxide 28 mmol/L (22-30); Chloride 108 mmol/L (98-107); Potassium 3.8 mmol/L (3.4-5.0); Sodium 140 mmol/L (137-145)
[2024-03-11 06:42] LABS: Anion Gap 4 mmol/L (4-12); Blood Urea Nitrogen 15 mg/dL (9-20); Calcium 9.1 mg/dL (8.4-10.2); Estimated CRCL calculation 58 ml/min; Estimated Glomerular Filt Rate > 60; Glucose 116 mg/dL (65-110)
--- NOTE | 2024-03-11 07:50 | PM.DS ---
DS: Admitting Diagnosis Discharge Date 03/11/24 Admitting Diagnosis hip arthritis DS: Discharge Diagnosis Discharge Diagnosis (1) Status post total hip replacement, left: Code(s): Z96.642 - Presence of left artificial hip joint Status: Acute Assessment and Plan: Postop day 1: Total hip arthroplasty. Patient tolerated procedure well. No complications. Pain manageable with pain medication. No numbness or tingling. We had a lengthy discussion regarding postoperative wound care, limitations, expectations, and exercises. Patient shows good understanding. Patient has had initial physical therapy and is tolerating it well. DVT prophylaxis: 81 mg baby aspirin b.i.d. for 14 days. Short frequent walks. Pain medication: Percocet. Naproxen. Patient has followup appointment with Dr. Mallory in 3 weeks DS: Summary Hospital Course Reason for hospitalization: Total hip arthroplasty Hospital Course: Patient tolerated procedure well. Has had initial PT/OT. Status at Discharge Functional status at discharge: uses cane/walker Overall status at discharge: patient is progressing back to baseline Time Spent with Patient Time attestation: Total time spent providing and/or coordinating discharge services: Exam Narrative: 78 y/o male. Resting comfortably in bed. Wearing compression socks bilaterally. Dressing dry and intact with no drainage. Mild swelling. No ecchymosis. No erythema. No hematoma. Range of motion limited due to pain. Calf nontender. Thigh nontender. Neurologic status intact. No varicosities. Distal pulses palpable. DS: Data Data Completed and Pending Labs on day of discharge: Labs from last 24 hours 03/11/24 03/10/24 05:43 06:43 WBC 9.5 RBC 3.70 L Hgb 10.9 L Hct 33.5 L MCV 90.5 MCH 29.5 MCHC 32.5 RDW 13.2 Plt Count 183 MPV 10.3 Immature Gran % (Auto) 0.4 Neut % (Auto) 77.0 H Lymph % (Auto) 12.4 L [place] % (Auto) 8.8 H Eos % (Auto) 0.8 Baso % (Auto) 0.6 Lymph # (Auto) 1.17 [place] # (Auto) 0.8 H Eos # (Auto) 0.1 Baso # (Auto) 0.1 Abs Immat Gran (auto) 0.04 H Absolute Neuts (auto) 7.3 H Absolute Nucleated RBC 0.000 Nucleated RBC % 0.0 Sodium 140 Potassium 3.8 Chloride 108 H Carbon Dioxide 28 Anion Gap 4 BUN 15 Creatinine 1.10 Estim Creat Clear Calc 58 Estimated GFR > 60 Glucose 116 H Calcium 9.1 Blood Type A Positive Antibody Screen Negative Discharge Plan Discharge Patient Disposition: Home, Self-Care Discharge Instructions: See green instruction sheets Stand Alone Forms: General Discharge Instructions Follow-up/Referrals: Zoey Lambert PA [Physician Configuration Management Manager] - Discharge Medications: New oxycodone-acetaminophen 5-325 mg tablet 1 - 2 tablet PO Q4-6H MDD 6 PRN (Reason: pain) Qty: 30 0RF Continued aspirin 81 mg tablet,delayed release (DR/EC) 81 mg PO DAILY fexofenadine 180 mg tablet 180 mg PO DAILY lorazepam 0.5 mg tablet 0.5 mg PO ONCE Qty: 2 0RF Patient Comments: ONLY FOR MRI PROCEDURE triamcinolone acetonide [Nasacort] 55 mcg aerosol,spray 1 spray intranasal DAILY PRN (Reason: Congestion) Rx Instructions: administer into each nostril montelukast 10 mg tablet 10 mg PO DAILY multivitamin Tablet 1 tablet PO DAILY hdak-vuinxm-bkthexcf-D3-C-Mn 500-400-667 mg-mg-unit Capsule 1 cap PO DAILY levothyroxine 112 mcg tablet 112 mcg PO DAILY Qty: 90 1RF naproxen 500 mg tablet 500 mg PO BID PRN (Reason: Pain) Qty: 180 0RF Rx Instructions: TAKE 1 TABLET TWICE A DAY NEEDED FOR PAIN trazodone 50 mg tablet 100 mg PO HS Qty: 180 0RF Rx Instructions: TAKE 2 TABLETS AT BEDTIME No Action lisinopril-hydrochlorothiazide 10-12.5 mg tablet 1 tablet PO QAM Qty: 90 1RF Rx Instructions: TAKE 1 TABLET DAILY
[2024-03-11 08:17] VITALS: O2SAT 98
[2024-03-11 08:36] VITALS: BP 117/81; PULSE 81; RESP 18; TEMP 36.6; O2SAT 100
--- NOTE | 2024-03-11 08:39 | WPDANESPN ---
Anes - Prog Note Post-Op Date/Time: 03/11/24 08:39 Cardiovascular status: normal Respiratory status: normal Airway patency: baseline Mental status: baseline Post-Op hydration status: normal Vital Signs: Last Vital Signs Temp 36.5 C 03/11/24 04:11 Pulse 85 03/11/24 04:11 Resp 16 03/11/24 04:11 BP 149/70 H 03/11/24 04:11 Pulse Ox 98 03/11/24 08:17 O2 Del Method Room Air 03/11/24 08:17 O2 Flow Rate 8 03/10/24 09:30 Pain Score (VAS): 0 I/O: Intake & Output 03/10/24 03/11/24 03/11/24 23:59 07:59 15:59 Intake Total 810 250 Balance 810 250 Laboratory Tests 03/11/24 05:43 03/11/24 05:43 03/11/24 05:43 WBC 9.5 RBC 3.70 L Hgb 10.9 L Hct 33.5 L MCV 90.5 MCH 29.5 MCHC 32.5 RDW 13.2 Plt Count 183 MPV 10.3 Immature Gran % (Auto) 0.4 Neut % (Auto) 77.0 H Lymph % (Auto) 12.4 L [place] % (Auto) 8.8 H Eos % (Auto) 0.8 Baso % (Auto) 0.6 Lymph # (Auto) 1.17 [place] # (Auto) 0.8 H Eos # (Auto) 0.1 Baso # (Auto) 0.1 Abs Immat Gran (auto) 0.04 H Absolute Neuts (auto) 7.3 H Absolute Nucleated RBC 0.000 Nucleated RBC % 0.0 Sodium 140 Potassium 3.8 Chloride 108 H Carbon Dioxide 28 Anion Gap 4 BUN 15 Creatinine 1.10 Estim Creat Clear Calc 58 Estimated GFR > 60 Glucose 116 H Calcium 9.1 Post-procedural complaints: none Patient Feedback: Patient satisfied with anesthetic care.
[2024-03-11] MEDS: ASPIRIN 81 MG ENTERIC TABLET PO (08:49)
[2024-03-11] MEDS: FAMOTIDINE 20 MG TABLET PO (08:49)
[2024-03-11] MEDS: polyethylene glycoL 3350 17 GM POWD.PACK PO (08:49)
[2024-03-11] MEDS: SENNA/DOCUSATE SODIUM TABLET 2 TAB PO (08:49)
[2024-03-11] MEDS: MONTELUKAST SODIUM 10 MG TABLET PO (08:50)
[2024-03-11] MEDS: LORATADINE 10 MG TABLET PO (08:50)
[2024-03-11] MEDS: hydroCHLOROthiazide 12.5 MG CAPSULE PO (08:50)
[2024-03-11] MEDS: lisinopriL 10 MG TABLET PO (08:50)
== END 2024-03-11 11:12 | disposition home or self-care (01) ==
LOC: ANHSURGERY 07:25 → ANH3MEDSUR 11:19
PROVIDERS: Physician Assistant Surgical; PCP Family Medicine; Visit Provider Orthopaedic Surgery
PROC: (CPT 27130; principal; 2024-03-10 07:30)
DX: M16.12 Unilateral primary osteoarthritis, left hip (principal); I10 Essential (primary) hypertension; K21.9 Gastro-esophageal reflux disease without esophagitis; E89.0 Postprocedural hypothyroidism; Z87.891 Personal history of nicotine dependence; Z79.82 Long term (current) use of aspirin
CPT/HCPCS: 27130; 36415; 73502; 80048; 80307; 83036; 85025; 86850; 86900; 86901; 87641; 97110; 97116; 97161; 97165; 97530; 97535; A9270; C1713; C1776; J0171; J0690; J1100; J1885; J2270; J2371; J2405; J2704; J2795; J3010; J7120

== ENCOUNTER 2024-03-24 11:19 | Outpatient (CLI) | payer MEDICARE, SELFPAY ==
--- NOTE | ~2024-03-24 | US_ITS ---
US venous doppler [facility] DATE: 03/24/2024 12:09 INDICATION: Left lower extremity swelling TECHNIQUE: Real-time and color flow imaging and Doppler analysis of the veins of the left lower extre mity COMPARISON: None FINDINGS: The left greater saphenous vein is patent. There is spontaneous and phasic flow and normal augmentation and color flow signal and normal compression of the deep veins of the left lower extremi ty. IMPRESSION: No evidence of deep venous thrombosis of left lower extremity Reviewed, dictated and finalized at Location A. Reviewed, dictated and finalized at location B.
--- NOTE | ~2024-03-24 | US_ITS ---
US venous doppler [facility] DATE: 03/24/2024 11:43 INDICATION: Left lower extremity swelling TECHNIQUE: Real-time and color flow imaging and Doppler analysis of the veins of the left lower extre mity COMPARISON: None FINDINGS: The left greater saphenous vein is patent. There is spontaneous and phasic flow and normal augmentation and color flow signal and normal compression of the deep veins of the left lower extremi ty. IMPRESSION: No evidence of deep venous thrombosis of left lower extremity Reviewed, dictated and finalized at Location A. Reviewed, dictated and finalized at location B.
== END 2024-03-24 11:20 | disposition home or self-care (01) ==
LOC: ANHIMG 11:21
PROVIDERS: PCP Family Medicine; Visit Provider Orthopaedic Surgery
DX: M79.89 Other specified soft tissue disorders (principal)
CPT/HCPCS: 93971

== ENCOUNTER 2024-04-28 10:26 | Outpatient (CLI) | payer MEDICARE, SELFPAY ==
--- NOTE | ~2024-04-28 | XR_ITS ---
EXAMINATION: XR hip LT 2V w AP pelvis DATE: 04/28/2024 10:41 INDICATION: Aftercare following joint replacement surgery. TECHNIQUE: An anteroposterior view of the pelvis and 2 views of left hip were obtained. COMPARISON: Left hip radiographs 03/10/2024 FINDINGS: There is a total left hip arthroplasty in near-anatomic alignment. No fracture. No peripros thetic lucency to suggest loosening or infection. There is mild right hip osteoarthritis. There is se lisset lumbar spondylosis. Surgical clips overlie the pelvis. IMPRESSION: 1. Total left hip arthroplasty in near-anatomic alignment. 2. Mild right hip osteoarthritis. Reviewed, dictated and finalized at location A.
== END 2024-04-28 10:27 | disposition home or self-care (01) ==
LOC: ANHIMG 10:28
PROVIDERS: PCP Family Medicine; Visit Provider Orthopaedic Surgery
DX: M16.11 Unilateral primary osteoarthritis, right hip (principal); Z47.1 Aftercare following joint replacement surgery
CPT/HCPCS: 73502

== ENCOUNTER 2024-06-26 20:39 | Emergency (ER) | payer MEDICARE, SELFPAY ==
[2024-06-26 20:46] VITALS: BP 144/72; PULSE 82; RESP 15; TEMP 36.8; O2SAT 96
[2024-06-27] VITALS (15 sets, daily range): BP systolic 115–154; BP diastolic 67–103; PULSE 64–72; RESP 12–19; TEMP 36.6; O2SAT 97–99
--- NOTE | 2024-06-27 00:48 | ED.EXTPRO ---
HPI - Extremity Problem General Chief complaint: Extremity Problem,Nontraumatic Stated complaint: leg pain Time Seen by Provider: 06/27/24 00:13 Source: patient Mode of arrival: ambulatory Limitations: no limitations History of Present Illness HPI Narrative: This is a 78 year old male that presents to the ER for right calf pain. Reports he was golfing earlier this week. He started to have some pain in his right lower leg. He noticed some swelling the next day which has continued. He has pain around the Achilles tendon and into the calf. His neighbor prompted him to be seen in the ER to rule out a blood clot. Denies fever, erythema. Related Data Home Medications Medication Instructions Recorded Confirmed aspirin 81 mg tablet,delayed 81 mg PO DAILY 10/09/19 04/29/24 release triamcinolone acetonide 55 mcg 1 spray intranasal DAILY PRN 08/17/20 04/29/24 nasal spray aerosol (Nasacort) Congestion glucosamine 500 1 cap PO DAILY 09/11/21 04/29/24 mi-zunlnvazn-vzkcfyqk comp 400 mg-D3 667 unit-C-Mn cap multivitamin 1 tablet PO DAILY 09/11/21 04/29/24 fexofenadine 180 mg tablet 180 mg PO DAILY 06/18/22 04/29/24 montelukast 10 mg tablet 10 mg PO DAILY 02/19/24 04/29/24 Allergies Allergy/AdvReac Type Severity Reaction Status Date / Time morphine AdvReac Mild Nausea Verified 06/26/24 20:50 Review of Systems Review of Systems: CONSTITUTIONAL: Denies fever CARDIOVASCULAR: Reports edema. Denies chest pain RESPIRATORY: Denies dyspnea. 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 Bass H/O hernia repair H/O prostatectomy 1999 cancer History of back surgery History of partial thyroidectomy History of right shoulder replacement Dr. Morfin 2020 History of total left hip arthroplasty (~03/10/24) Family History Family History Sibling Diabetes mellitus Family history of hypercholesterolemia Hypertension Family history of cardiovascular disease Cerebrovascular accident Family history of chronic obstructive pulmonary disease Father Family history of cardiovascular disease Mother Family history of cardiovascular disease Other Family history of osteoarthritis Social History Social History Smoking packs per day: 1 Smoking cigarettes per day: 20.0 Years smoked: 30 Smoking pack-years: 30.00 Smoking status: Former smoker Second hand tobacco smoke exposure: No Additional smoking assessment comments: DENIES ANY FORM OF TOBACCO USE Alcohol intake: current Drinks per week: 14 Substance use: never Substance use type: does not use Do You Feel Safe in your Home?: Yes Lack of Transportation: YES Lack of Food: Never True Current Housing: Decline to Answer Concerned About Future Housing: Decline to Answer Difficulty Paying Gas/Electric Bills: Decline to Answer Difficulty Paying for Meds: Decline to Answer Currently Unemployed: Decline to Answer Education: Decline to Answer Difficulty w/ Childcare or Family Care: Decline to Answer Living arrangements: with family Additional living arrangements comments: KAREN Miller
[2024-06-27 01:04] LABS: Basophils Absolute Auto 0.1 K/mm3 (0.0-0.1); Basophils Percent Auto 1.3 % (0.2-1.2); Eosinophils Absolute Auto 0.4 K/mm3 (0-0.3); Eosinophils Percent Auto 5.2 % (0-4.4); Hematocrit 40.5 % (42.0-52.0); Hemoglobin 13.4 g/dL (14.0-18.0); Immature Granulocyte Absolute 0.01 K/mm3 (0.00-0.031); Immature Granulocyte Percent A 0.1 % (0-0.5); Lymphocytes Absolute Auto 1.58 K/mm3 (0.9-3.2); Lymphocytes Percent Auto 22.2 % (18.3-44.2); Mean Corpuscular HGB Conc 33.1 g/dl (32-36); Mean Corpuscular Hemoglobin 29.1 pg (26-34); Mean Platelet Volume 10.1 fl (7.4-10.4); Monocytes Absolute Auto 0.6 K/mm3 (0.1-0.6); Monocytes Percent Auto 7.9 % (2.6-8.5); Neutrophils Absolute Auto 4.5 K/mm3 (1.3-6.7); Neutrophils Percent Auto 63.3 % (45.5-73.1); Platelet Count Result 240 k/mm3 (150-375); Red Cell Distribution Width 13.1 % (11.5-14.5); White Blood Count 7.1 K/mm3 (4.5-10.0)
[2024-06-27 01:12] LABS: Anion Gap 6 mmol/L (4-12); Blood Urea Nitrogen 20 mg/dL (9-20); Calcium 9.6 mg/dL (8.4-10.2); Carbon Dioxide 31 mmol/L (22-30); Chloride 101 mmol/L (98-107); Estimated CRCL calculation 54 ml/min; Estimated Glomerular Filt Rate 58; Glucose 100 mg/dL (65-110); Potassium 4.3 mmol/L (3.4-5.0); Sodium 138 mmol/L (137-145)
[2024-06-27 01:14] LABS: Prothrombin Time 13.4 Seconds (11.1-14.7)
[2024-06-27 01:15] LABS: Partial Thromboplastin Time 25.2 Seconds (22.3-36.8)
[2024-06-27 01:28] LABS: D Dimer 2.06 ug/mL (<0.48)
[2024-06-27] MEDS: ENOXAPARIN 100 MG/ML SYRINGE SUB-Q (01:45)
== END 2024-06-27 01:57 | disposition home or self-care (01) ==
PROVIDERS: Emergency Provider Physician Assistant; PCP Family Medicine
DX: R60.0 Localized edema (principal); I10 Essential (primary) hypertension; E89.0 Postprocedural hypothyroidism; K21.9 Gastro-esophageal reflux disease without esophagitis; M16.12 Unilateral primary osteoarthritis, left hip; M17.0 Bilateral primary osteoarthritis of knee; M11.262 Other chondrocalcinosis, left knee; M11.261 Other chondrocalcinosis, right knee; Z96.642 Presence of left artificial hip joint; Z96.611 Presence of right artificial shoulder joint; Z87.891 Personal history of nicotine dependence; Z85.841 Personal history of malignant neoplasm of brain; Z85.46 Personal history of malignant neoplasm of prostate; Z90.79 Acquired absence of other genital organ(s); Z79.82 Long term (current) use of aspirin; Z79.899 Other long term (current) drug therapy
CPT/HCPCS: 36415; 80048; 85025; 85380; 85610; 85730; 96372; 99283; J1650

== ENCOUNTER 2024-06-27 07:32 | Outpatient (CLI) | payer MEDICARE, SELFPAY ==
--- NOTE | ~2024-06-27 | US_ITS ---
EXAMINATION: US venous doppler LE RT DATE: 06/27/2024 09:12 INDICATION: Right lower limb edema. TECHNIQUE: Grayscale ultrasound images without and with compression and Doppler ultrasound images of the right lower extremity veins were obtained. COMPARISON: None. FINDINGS: The visualized portions of right common femoral vein, popliteal vein, peroneal veins, posterior tibia l veins, and greater saphenous vein outflow are patent. There is thrombus in right profunda femoral v ein. IMPRESSION: 1. Deep vein thrombosis involving right profunda femoral vein. Reviewed, dictated and finalized at location A.
== END 2024-06-27 07:33 | disposition home or self-care (01) ==
PROVIDERS: PCP Family Medicine; Visit Provider Family Medicine
DX: R60.0 Localized edema (principal); I82.411 Acute embolism and thrombosis of right femoral vein
CPT/HCPCS: 93971

== ENCOUNTER 2024-06-27 09:22 | Emergency (ER) | payer MEDICARE, SELFPAY ==
[2024-06-27 09:27] VITALS: BP 181/83; PULSE 66; RESP 16; TEMP 36.3; O2SAT 99
--- NOTE | 2024-06-27 10:30 | ED.LOWEXIN ---
HPI - Extremity Injury (Lower) General Chief Complaint: Extremity Injury, Lower Stated Complaint: US today blood clot RLE Time Seen by Provider: 06/27/24 10:15 History of Present Illness HPI Narrative: 78-year-old male presenting with DVT. His right leg has been swollen and sore for the last few days. He was seen here last night and given a shot of Lovenox. He was instructed to come back for an ultrasound in the morning which he did. It does show a clot in his right leg. He denies chest pain or shortness of breath. No syncopal symptoms. Denies numbness. Currently denies complaints. Related Data Home Medications Medication Instructions Recorded Confirmed aspirin 81 mg tablet,delayed 81 mg PO DAILY 10/09/19 04/29/24 release triamcinolone acetonide 55 mcg 1 spray intranasal DAILY PRN 08/17/20 04/29/24 nasal spray aerosol (Nasacort) Congestion glucosamine 500 1 cap PO DAILY 09/11/21 04/29/24 qm-sbyfyluwd-sfazcfrd comp 400 mg-D3 667 unit-C-Mn cap multivitamin 1 tablet PO DAILY 09/11/21 04/29/24 fexofenadine 180 mg tablet 180 mg PO DAILY 06/18/22 04/29/24 montelukast 10 mg tablet 10 mg PO DAILY 02/19/24 04/29/24 Allergies Allergy/AdvReac Type Severity Reaction Status Date / Time morphine AdvReac Mild Nausea Verified 06/26/24 20:50 Review of Systems Review of Systems: All systems reviewed & are unremarkable except as noted in HPI and below PMFSH Past Medical History Medical History Arthritis of knee Arthritis of left hip Arthritis, lumbar spine BMI 29.0-29.9,adult 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 Bass H/O hernia repair H/O prostatectomy 1999 cancer History of back surgery History of partial thyroidectomy History of right shoulder replacement Dr. Morfin 2020 History of total left hip arthroplasty (~03/10/24) Family History Family History Sibling Diabetes mellitus Family history of hypercholesterolemia Hypertension Family history of cardiovascular disease Cerebrovascular accident Family history of chronic obstructive pulmonary disease Father Family history of cardiovascular disease Mother Family history of cardiovascular disease Other Family history of osteoarthritis Social History Social History Smoking packs per day: 1 Smoking cigarettes per day: 20.0 Years smoked: 30 Smoking pack-years: 30.00 Smoking status: Former smoker Second hand tobacco smoke exposure: No Additional smoking assessment comments: DENIES ANY FORM OF TOBACCO USE Alcohol intake: current Drinks per week: 14 Substance use: never Substance use type: does not use Do You Feel Safe in your Home?: Yes Lack of Transportation: YES Lack of Food: Never True Current Housing: Decline to Answer Concerned About Future Housing: Decline to Answer Difficulty Paying Gas/Electric Bills: Decline to Answer Difficulty Paying for Meds: Decline to Answer Currently Unemployed: Decline to Answer Education: Decline to Answer Difficulty w/ Childcare or Family Care: Decline to Answer Living arrangements: with family Additional living arrangements comments: [facility] Occupation/Education: retired Gender identity (if verbalized by the patient): Male Spiritual care concerns: No Exam Narrative: GENERAL: We
== END 2024-06-27 11:18 | disposition home or self-care (01) ==
PROVIDERS: Emergency Provider Emergency Medicine; PCP Family Medicine
DX: I82.401 Acute embolism and thrombosis of unspecified deep veins of right lower extremity (principal); I10 Essential (primary) hypertension; E89.0 Postprocedural hypothyroidism; K21.9 Gastro-esophageal reflux disease without esophagitis; M16.12 Unilateral primary osteoarthritis, left hip; M17.0 Bilateral primary osteoarthritis of knee; M11.262 Other chondrocalcinosis, left knee; M11.261 Other chondrocalcinosis, right knee; Z96.642 Presence of left artificial hip joint; Z96.611 Presence of right artificial shoulder joint; Z87.891 Personal history of nicotine dependence; Z85.841 Personal history of malignant neoplasm of brain; Z85.46 Personal history of malignant neoplasm of prostate; Z90.79 Acquired absence of other genital organ(s); Z79.82 Long term (current) use of aspirin; Z79.899 Other long term (current) drug therapy
CPT/HCPCS: 36415; 80048; 85025; 85380; 85610; 85730; 93971; 96372; 99283; J1650

== ENCOUNTER 2024-07-10 06:34 | Outpatient (CLI) | payer MEDICARE, SELFPAY ==
--- NOTE | ~2024-07-10 | CT_ITS ---
CT of the Abdomen and Pelvis: Indication: Lymphadenopathy Technique: 2.5 mm axial scans were obtained through the abdomen and pelvis following intravenous adm inistration of 100 cc of Omnipaque 350. Dose reduction technique was used on this scan by utilizing a utomated exposure control and iterative reconstruction technique. The dose-length product (DLP) was 1 167.31 mGy-cm. Findings: Scans through the lung bases are unremarkable. The liver, spleen, pancreas, gallbladder, and adrenal glands are within normal limits. 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 No hydronephrosis. Punctate stones present in the right renal moiet y. There are atherosclerotic calcifications of the aorta. No lymphadenopathy. No bowel obstruction or bowel wall thickening. There is no evidence to suggest acute appendicitis. Images through the pelvis are degraded by streak artifact from left hip arthroplasty. Urinary bladder unremarkable. Status post prostatectomy. No pelvic mass evident. No ascites. Impression: No lymphadenopathy evident. 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 Status post prostatectomy. Reviewed, dictated and finalized at [facility]. Impression: No lymphadenopathy evident. 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 Status post prostatectomy.
== END 2024-07-10 06:35 | disposition home or self-care (01) ==
PROVIDERS: PCP Family Medicine; Visit Provider Family Medicine
DX: R59.0 Localized enlarged lymph nodes (principal); R10.9 Unspecified abdominal pain
CPT/HCPCS: 74177; Q9967

== ENCOUNTER 2024-10-30 08:00 | Outpatient (CLI) | payer MEDICARE, SELFPAY ==
--- NOTE | ~2024-10-30 | US_ITS ---
EXAMINATION: US venous doppler [facility] DATE: 10/30/2024 08:58 INDICATION: Acute embolism and thrombosis of unspecified deep vein. TECHNIQUE: Grayscale ultrasound images without and with compression and Doppler ultrasound images of the bilateral lower extremity veins were obtained. COMPARISON: Ultrasound 06/27/2024 FINDINGS: The visualized portions of right common femoral vein, femoral vein, popliteal vein, peroneal veins, p osterior tibial veins, and greater saphenous vein outflow are patent. There is thrombus in right prof unda (deep) femoral vein. The visualized portions of left common femoral vein, profunda femoral vein, femoral vein, popliteal v ein, peroneal veins, posterior tibial veins, and greater saphenous vein outflow are patent. IMPRESSION: 1. 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 Reviewed, dictated and finalized at location A. TY CONSULTANT
== END 2024-10-30 08:01 | disposition home or self-care (01) ==
PROVIDERS: PCP Family Medicine; Visit Provider Family Medicine
DX: I82.511 Chronic embolism and thrombosis of right femoral vein (principal)
CPT/HCPCS: 93970

== ENCOUNTER 2025-03-08 13:18 | Outpatient (CLI) | payer MEDICARE, SELFPAY ==
--- NOTE | ~2025-03-08 | XR_ITS ---
XR hip LT 2V w AP pelvis Ordering provider: Myron Mallory MD History: . Z47.1 - Aftercare following joint replacement surgery X 1 YR . Comparison: October 14, 2024 FINDINGS: BONES: No acute fracture or dislocation. HIP JOINT SPACES: Left hip arthroplasty. Severe right hip osteoarthritic changes. SACROILIAC JOINT SPACES/LUMBAR SPINE: The sacroiliac joint spaces shows bilateral sacroiliitis. Mild degenerative changes of the visualized lower lumbar spine. PUBIC SYMPHYSIS: Normal. SOFT TISSUES: Normal. Postoperative changes in the pelvis. IMPRESSION: No acute osseous abnormality pelvis and left hip. Left hip arthroplasty unchanged. Right hip severe osteoarthritic change. Reviewed, dictated and finalized at location A.
--- OUTSIDE RECORDS SUMMARY | 2025-03-08 13:56 | XMS_ITS | Referral Summary ---
Author Organization [facility] Address [address] [place] [address] Care Team Providers Care Jazz Singer Name Role Phone Chi Diaz MD Primary Care Provider [phone] Cirilo Morfin MD Unavailable [phone] Allergies Active Allergy Reactions Criticality Noted Date Comments Mold Unknown 11/18/2012 Morphine Nausea & Vomiting Low Medications lisinopril-hydr oCHLOROthiazide (PRINZIDE,ZESTO RETIC) 10-12.5 mg per tabletIndicatio ns:hypertension Take 1 tablet by mouth daily 1 Active MEN'S MULTI-VITAMIN ORAL Take 1 tablet by mouth daily Active naproxen (NAPROSYN) 500 mg tablet Take 500 mg by mouth as needed Active triamcinolone acetonide (NASACORT AQ NASL) Administer 1 spray into each nostril as needed 1 Active glucosamine-cho ndroitin 250-200 mg tablet Take 1 tablet by mouth daily Active montelukast (SINGULAIR) 10 mg tablet Take 10 mg by mouth nightly Active ascorbic acid (ascorbic acid) 500 mg tablet,chewable Take 500 mg by mouth daily as needed Active cholecalciferol (VITAMIN D3) 2,000 unit capsule Take 2,000 Units by mouth daily as needed Active loratadine (CLARITIN) 10 mg tablet Take 10 mg by mouth daily Active traZODone (DESYREL) 50 mg tablet Take 100 mg by mouth nightly Active oxyCODONE-aceta minophen (PERCOCET) 5-325 mg per tabletIndicatio ns:Pain Take 1-2 tablets every 4 hours as needed for pain 40 tablet 1 Active aspirin 81 mg enteric coated tabletIndicatio ns:Deep Vein Thrombosis Prevention Take 1 tablet (81 mg total) by mouth 2 (two) times a day After need for blood clot prevention complete per Dr. Morfin, return to your normal dose of 81 mg daily. 0 1 Active Active Problems Problem Noted Date Diagnosed Date Arthritis of right shoulder region 10/24/2021 Primary osteoarthritis of right shoulder 021 Overview (08/09/2021): Added automatically from request for surgery [id number] Arthropathy 08/09/2021 Overview (08/09/2021): Added automatically from request for surgery [id number] Meningioma 04/24/2018 Immunizations Immunization Administration Dates Next Due Influenza, Trivalent, Preservative Free, Intramu scular 11/20/2013 Influenza, Unspecified 07/05/2017 Social History Tobacco Use Types Packs/Day Years Used Date Smoking Tobacco: Former Cigarettes 1 5 - 2004 Smokeless Tobacco: Never Alcohol Use Standard Drinks/Week Comments Yes 0 (1 standard drink = 0.6 oz pur e alcohol) AUDIT-C Answer Date Recorded Q1: How often do you have a drink containing alcohol? 4 or more times a week 10/09/2021 Q2: How many drinks containi ng alcohol do you have on a typical day when you are drinking? 3 or 4 Q3: How often do you have si x or more drinks on one occasion? 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 Gender Identity Not on file Sexual Orientation Not on file Last Filed Vital Signs Vital Sign Reading Time Taken Comments Blood Pressure 126/67 10/25/2021 8:00 AM [employer] SWE[employer] OPERATOR Pulse 91 10/25/2021 8:00 AM [employer] SWE[employer] OPERATOR Temperature 36.8 C (98.3 F) 10/25/2021 8:00 AM [employer] SWE[employer] OPERATOR Respiratory Rate 18 10/25/2021 8:00 AM [employer] SWE[employer] OPERATOR Oxygen Saturation 98% 10/25/2021 8:00 AM [employer] SWE[employer] OPERATOR Inhaled Oxygen Concentration - - Weight 98.4 kg (216 lb 14.9 oz) 10/24/2021 6:31 AM [employer] SWE[employer] OPERATOR Height 180.3 cm (5' 11 ) 10/24/2021 6:31 AM [employer] SWE[employer] OPERATOR Body Mass Index 30.26 10/24/2021 6:31 AM [employer]WE[employer] OPERATOR Plan of Treatment Not on file Medical Devices Implanted Type Area Digital Camera Technician Device Identifier Shelf Expiration Date Model / Serial / Lot [employer] [id number] Comprehensive 4.75mm 20mm Fix Angle Lock Hexagonal 3.5mm Screw - [id number] Implanted:Qty: 1 on 10/24/2021 by Cirilo Morfin MD at [facility] Right: Shoulder [employer] [id number] 06/06/2031 [id number] / / [id number] [employer] [id number] Comprehensive Taper Adapter 25mm Mini Baseplate Glenoid Reverse - [id number] Implanted:Qty: 1 on 10/24/2021 by Cirilo Morfin MD at [facility] Right: Shoulder [employer] [id number] 03/14/2031 [id number] / / [id number] [employer] [id number] Tray Humeral Comprehensive Standard Shoulder Reverse - [id number] Implanted:Qty: 1 on 10/24/2021 by Cirilo Morfin MD at [facility] Right: Shoulder [employer] [id number] 08/27/2031 [id number] / / [id number] [employer] [id number] Bearing Humeral Comprehensive Prolong Standard Od40mm Shoulder Reverse - [id number] Implanted:Qty: 1 on 10/24/2021 by Cirilo Morfin MD at [facility] Right: Shoulder [employer] [id number] 03/03/2024 [id number] / / [id number] [employer] [id number] Component Glenoid 40mm Std Rvrs Glenosphere Comprehensive - [id number] Implanted:Qty: 1 on 10/24/2021 by Cirilo Morfin MD at [facility] Right: Shoulder [employer] [id number] 06/03/2031 [id number] / / [id number] [employer] [id number] Comprehensive 6.5mm 20mm Central Hexagonal 3.5mm Screw Bone - [id number] Implanted:Qty: 1 on 10/24/2021 by Cirilo Morfin MD at [facility] Right: Shoulder [employer] [id number] 04/26/2031 [id number] / / [id number] [employer] [id number] Comprehensive 16mm 83mm Shoulder Mini Stem Humeral Porous Reverse - [id number] Implanted:Qty: 1 on 10/24/2021 by Cirilo Morfin MD at [facility] Right: Shoulder [employer] [id number] 01/09/2029 [id number] / / [id number] [employer] [id number] Comprehensive 4.75mm 15mm Variable Angle Nonlock Hexagonal Head - [id number] Implanted:Qty: 1 on 10/24/2021 by Cirilo Morfin MD at [facility] Right: Shoulder [employer] [id number] 07/21/2031 [id number] / / [id number] [employer] [id number] Comprehensive 4.75mm 25mm Variable Angle Nonlock Hexagonal Head - [id number] Implanted:Qty: 1 on 10/24/2021 by Cirilo Morfin MD at [facility] Right: Shoulder [employer] [id number] 08/17/2030 [id number] / / [id number] [employer] [id number] Comprehensive 4.75mm 25mm Fix Angle Lock Hexagonal 3.5mm Screw - [id number] Implanted:Qty: 1 on 10/24/2021 by Cirilo Morfin MD at [facility] Right: Shoulder [employer] [id number] 08/18/2031 [id number] / / [id number] Explanted Type Area Digital Camera Technician Device Identifier Shelf Expiration Date Model / Serial / Lot [employer] [id number] Violeta 3.2mm 9in Guide Pin Orthopedic - [id number] Explanted:Qty: 1 on 10/24/2021 at [facility] Right: Shoulder [employer] [id number] 06/09/2031 [id number] / / [id number] Insurance [employer] [facility] [employer] Advance Directives For more information, please contact: [phone] * Full Code (Latest Code Status on File) Date Activated Date Inactivated Comments 10/24/2021 11:02 AM 10/25/2021 4:17 PM Care Teams Jazz Singer Relationship Specialty Start Date End Date Chi Diaz MD [address] [place] [address] PCP - General 01/24/18 Cirilo Morfin MD [address] [address] Consulting Physician Orthopedic Surgery 10/25/21
--- OUTSIDE RECORDS SUMMARY | 2025-03-08 13:56 | XMS_ITS | Continuity of Care Document ---
Author Organization [facility] Address [address] [place] [address] Phone Care Team Providers Care Dough Cutter Name Role Phone Tete Atkins Unavailable Unavailable Allergies, Adverse Reactions, Alerts Substance Reaction Status [...] minimum 2 views Global/Postop followup visit Office/outpatient visit,[facility] 2020 Advance Directives Directive Yes / No Effective Date File Name No Information Encounters Encounter Description Practice Location Reason(s) For Visit Diagnoses Date Provider Providers Copied on Encounter [facility], [address] [facility], [place], [place], [id number], [place] tel:[phone] [facility] right shoulder (chief complaint) Presence of right artificial shoulder joint 2 Dee Epstein. [address] [facility], [place], [place], [id number] , [place]. tel:[phone] Referring Provider: Tete Broderick [address] [address], [place], [address] . tel:[phone] [facility], [address], [id number], tel:[phone] [facility] right shoulder (chief complaint) Presence of right artificial shoulder joint 2 Dee Epstein. [address] [place] [address], [place], [place], [id number] , [place]. tel:[phone] Referring Provider: Tete Broderick, [address] [place] [address], [place], [address] . tel:[phone] [facility], [address] [place] [address], [place], [place], [id number], tel:[phone] [facility] right shoulder (chief complaint) Presence of right artificial shoulder joint 1 Dee Epstein. [address] [place] [address], [place], [place], [id number] , [place]. tel:[phone] Referring Provider: Tete Broderick, [address] [place] [address], [place], [address] . tel:[phone] Office/outpat ient visit,[facility], [address] [place] [address], [id number], tel:[phone] [facility] Shoulder (chief complaint) Primary osteoarthriti s, right shoulderArthr opathy, unspecified 1 Navjot Kerr. [address] [address], [place], [place], [id number] , [place]. tel:[phone] Referring Provider: Cirilo Duvall, [address] [place] [address], [place], [address] . tel:[phone] Family History Family Member Type Diagnosis Age At Onset Mother Problem (finding) Heart Disease Brother Problem (finding) Diabetes Brother Problem (finding) Cancer, unknown Brother Problem (finding) Kidney Disease Father Problem (finding) Stroke Brother Problem (finding) Stroke Father Problem (finding) Heart Disease Father Problem (finding) Hypertension Brother Problem (finding) Hypertension Payers Payer name Insurance type Covered constitution party ID Kraig lucas(bladimir Andrew Medicare CI [id number] Social History Type Description Quantity Date Captured [...] 96.162 kg (212.00 lbs) 28.7 5 kg/m marthaer (2) Chief Complaint And Reason For Visit [...] medication. right shoulder Fransico comes in t office today for his right shoulder. He [...]
--- OUTSIDE RECORDS SUMMARY | 2025-03-08 13:56 | XMS_ITS | Clinical Summary ---
Author Organization [facility] Address [address] [place] [address] Care Team Providers Care Pbx Mechanic Name Role Phone Kwame Diaz MD Primary Care Provider [phone] Social History Tobacco Use Types Packs/Day Years Used Date Smoking Tobacco: Never Assessed Sex and Gender Information Value Date Recorded Sex Assigned at Not on file Legal Sex Male 8:00 PM CDT Gender Identity Not on file Sexual Orientation Not on file Plan of Treatment Health Maintenance Due Date Last Done Comments DTaP, Tdap and Td Vaccines ( 1 - Tdap) 1963 Pneumococcal Vaccine: 50+ Years (1 of 1 - PCV) 1994 Zoster Vaccines (1 of 2) 1994 Annual Medicare Wellness Visit 2009 RSV Immunization or 60+ Years (1 - 1-dose 75+ series) 2019 COVID-19 Vaccine ( - 2023-2 5 season) 2024 01/16/2021, 12/26/2020 Meningococcal B Vaccine Aged Out No l onger eligible based on patient's age to complete this topic Meningococcal Vaccine Aged Out No yohan milla eligible based on patient's age to complete this topic RSV Immunizations Under 20 Months Aged Out No longer eligible b ased on patient's age to complete this topic Insurance [employer] Care Teams Pbx Mechanic Relationship Specialty Start Date End Date Kwame Diaz MD [address] [place] [address] PCP - General FAMILY PRACTICE 08/21/21
--- OUTSIDE RECORDS SUMMARY | 2025-03-08 13:56 | XMS_ITS | Clinical Summary ---
Author Organization [facility] Address [address] [place] [address] Care Team Providers Care Veneer Gluer Name Role Phone Chi Diaz MD Primary Care Provider [phone] Cirilo Morfin MD Unavailable [phone] Allergies Active Allergy Reactions Criticality Noted Date [...] (08/09/2021): Added automatically from request for surgery [id number] Arthropathy 08/09/2021 Overview (08/09/2021): Added automatically from request for surgery [id number] Meningioma 04/24/2018 Immunizations Immunization Administration Dates Next Due Influenza, Trivalent, Preservative Free, Intramu scular 11/20/2013 Influenza, Unspecified 07/05/2017 Surgical History Surgery Date Site/Laterality Comments CO UNLISTED PROCEDURE ABDOME N PERITONEUM & OMENTUM Hernia Repair - (Added by TW Conv) BACK SURGERY Back Surgery - (Added by TW Conv) CO PROSTATECTOMY RETROPUBIC W/WO NERVE SPARING Prostatectomy Retropubic Radical With Nerve Sparing - 1999 (Added by TW Conv) Medical History Medical History Date Comments Personal history of malignan t neoplasm of prostate History of malignant neoplas m of prostate - (Added by TW Conv) Personal history of other ma lignant neoplasm of skin History of malignant neoplas m of skin - (Added by TW Conv) Osteoarthritis of right shoulder HTN (hypertension) ED (erectile dysfunction) Seizure (HCC) Family History Medical History Relation Name Comments Cancer Brother Diabetes Brother Hypertension Brother Prostate cancer Brother Family histo ry of malignant neoplasm of prostate - (Added by TW Conv) Heart defect Father Heart problem - (Added by TW Conv) Hypertension Father Cancer Maternal Grandfather Stroke Maternal Grandmother Heart defect Mother Heart problem - (Added by TW Conv) Hypertension Mother Cancer Paternal Grandfather Stroke Paternal Grandmother Relation Name Status Comments Brother Father Maternal Grandfather Maternal Grandmother Mother Paternal Grandfather Paternal Grandmother Social History Tobacco Use Types Packs/Day Years Used Date Smoking Tobacco: Former Cigarettes 1 965 - 2004 Smokeless Tobacco: Never Alcohol Use [...] on file 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 Gender Identity Not on file Sexual Orientation Not on file Obstetrics History Last Filed Vital Signs Vital Sign Reading Time Taken Comments Blood Pressure 126/67 10/25/2021 8:00 AM SALON SHAMPOO ASSISTANT Pulse 91 10/25/2021 8:00 AM SALON SHAMPOO ASSISTANT Temperature 36.8 C (98.3 F) 10/25/2021 8:00 AM SALON SHAMPOO ASSISTANT Respiratory Rate 18 10/25/2021 8:00 AM SALON SHAMPOO ASSISTANT Oxygen Saturation 98% 10/25/2021 8:00 AM SALON SHAMPOO ASSISTANT Inhaled Oxygen Concentration - - Weight 98.4 kg (216 lb 14.9 oz) 10/24/2021 6:31 AM SALON SHAMPOO ASSISTANT Height 180.3 cm (5' 11 ) 10/24/2021 6:31 AM SALON SHAMPOO ASSISTANT Body Mass Index 30.26 10/24/2021 6:31 AM SALON SHAMPOO ASSISTANT Plan of Treatment Not on file Medical Devices Implanted Type Area Investment Banking Manager Device Identifier Shelf Expiration Date Model / Serial / Lot [employer] [id number] Comprehensive 4.75mm 20mm Fix Angle Lock Hexagonal 3.5mm Screw - [id number] Implanted:Qty: 1 on 10/24/2021 by Cirilo Morfin MD at [facility] Right: Shoulder [employer] [id number] 06/06/2031 [id number] / / [id number] [employer] [id number] Comprehensive Taper Adapter 25mm Mini Baseplate Glenoid Reverse - [id number] Implanted:Qty: 1 on 10/24/2021 by Cirilo Morfin MD at [facility] Right: Shoulder [employer] [id number] 03/14/2031 [id number] / / [id number] [employer] [id number] Tray Humeral Comprehensive Standard Shoulder Reverse - [id number] Implanted:Qty: 1 on 10/24/2021 by Cirilo Morfin MD at [facility] Right: Shoulder [employer] [id number] 08/27/2031 [id number] / / [id number] [employer] [id number] Bearing Humeral Comprehensive Prolong Standard Od40mm Shoulder Reverse - [id number] Implanted:Qty: 1 on 10/24/2021 by Cirilo Morfin MD at [facility] Right: Shoulder [employer] [id number] 03/03/2024 [id number] / / [id number] [employer] [id number] Component Glenoid 40mm Std Rvrs Glenosphere Comprehensive - [id number] Implanted:Qty: 1 on 10/24/2021 by Cirilo Morfin MD at [facility] Right: Shoulder [employer] [id number] 06/03/2031 [id number] / / [id number] [employer] [id number] Comprehensive 6.5mm 20mm Central Hexagonal 3.5mm Screw Bone - [id number] Implanted:Qty: 1 on 10/24/2021 by Cirilo Morfin MD at [facility] Right: Shoulder [employer] [id number] 04/26/2031 [id number] / / [id number] [employer] [id number] Comprehensive 16mm 83mm Shoulder Mini Stem Humeral Porous Reverse - [id number] Implanted:Qty: 1 on 10/24/2021 by Cirilo Morfin MD at [facility] Right: Shoulder [employer] [id number] 01/09/2029 [id number] / / [id number] [employer] [id number] Comprehensive 4.75mm 15mm Variable Angle Nonlock Hexagonal Head - [id number] Implanted:Qty: 1 on 10/24/2021 by Cirilo Morfin MD at [facility] Right: Shoulder [employer] [id number] 07/21/2031 [id number] / / [id number] [employer] [id number] Comprehensive 4.75mm 25mm Variable Angle Nonlock Hexagonal Head - [id number] Implanted:Qty: 1 on 10/24/2021 by Cirilo Morfin MD at [facility] Right: Shoulder [employer] [id number] 08/17/2030 [id number] / / [id number] [employer] [id number] Comprehensive 4.75mm 25mm Fix Angle Lock Hexagonal 3.5mm Screw - [id number] Implanted:Qty: 1 on 10/24/2021 by Cirilo Morfin MD at [facility] Right: Shoulder [employer] [id number] 08/18/2031 [id number] / / [id number] Explanted Type Area Investment Banking Manager Device Identifier Shelf Expiration Date Model / Serial / Lot [employer] [id number] Steinmann 3.2mm 9in Guide Pin Orthopedic - [id number] Explanted:Qty: 1 on 10/24/2021 at [facility] Right: Shoulder [employer] [id number] 06/09/2031 [id number] / / [id number] [facility] Advance Directives For more information, please contact: [phone] * Full Code (Latest Code Status on File) Date Activated Date Inactivated Comments 10/24/2021 11:02 AM 10/25/2021 4:17 PM Care Teams Veneer Gluer Relationship Specialty Start Date End Date Chi Diaz MD [address] [place] [address] PCP - General 01/24/18 Cirilo Morfin MD [address] [facility] [address] [place] [address] Consulting Physician Orthopedic Surgery 10/25/21
== END 2025-03-08 13:19 | disposition home or self-care (01) ==
PROVIDERS: Visit Provider Orthopaedic Surgery
DX: Z47.1 Aftercare following joint replacement surgery (principal); Z96.642 Presence of left artificial hip joint; M16.11 Unilateral primary osteoarthritis, right hip
CPT/HCPCS: 73502

== ENCOUNTER 2025-08-10 13:36 | Outpatient (CLI) | payer MEDICARE, SELFPAY ==
--- OUTSIDE RECORDS SUMMARY | 2021-12-27 08:15 | XMS_ITS | Continuity of Care Document ---
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, [id number], tel:[phone] [facility] right shoulder (chief complaint) Presence of right artificial shoulder joint 2 Dee Epstein. [address] [facility], [address], [place], [place], [id number] , [place]. tel:[phone] Referring Provider: Tete Brodreick, [address] [facility] [address] [facility], [place], [address] . tel:[phone] [facility], [address] [address], [place], [place], [id number], tel:[phone] [facility] right shoulder (chief complaint) Presence of right artificial shoulder joint 2 Dee Epstein. [address] [facility], [address] [address], [place], [place], [id number] , [place]. tel:[phone] Referring Provider: Tete Broderick, [address] [place] [address], [place], [address] . tel:[phone] [facility], [address] [place] [address], [id number], [place] tel:[phone] [facility] right shoulder (chief complaint) Presence of right artificial shoulder joint 1 Dee Epstein. [address] [place] [address], [address] [address], [place], [place], [id number] , [place]. tel:[phone] Referring Provider: Tete Broderick, [address] [place] [address], [place], [address] . tel:[phone] Office/outpat ient visit,[facility], [address] [place] [address], [place], [place], [id number], tel:[phone] [facility] Shoulder (chief complaint) Primary osteoarthriti s, right shoulderArthr opathy, unspecified 1 Navjot Kerr. [address] [place] [address], [place], [place], [id number] , [place]. tel:[phone] Referring Provider: Cirilo Duvall, [address] [address], [place], [address] . tel:[phone] Family History Family Member Type Diagnosis Age At Onset Mother Problem (finding) Heart Disease Brother Problem (finding) Diabetes Brother Problem (finding) Cancer, unknown Brother Problem (finding) Kidney Disease Father Problem (finding) Stroke Brother Problem (finding) Stroke Father Problem (finding) Heart Disease Father Problem (finding) Hypertension Brother Problem (finding) Hypertension Payers Payer name Insurance type Covered alliance party ID Kraig lucas(s) [employer] Medicare CI [id number] Social History Type Description Quantity Date Captured [...]
--- NOTE | ~2025-08-10 | US_ITS ---
EXAMINATION: US venous doppler LE RT, 08/10/2025 14:00 CDT HISTORY: I82.401 - Acute embolism and thrombosis of unspecified de... Comparison: None Technique: Finney-scale and color Doppler images were attempted of the lower saphenofemoral junction, common femoral vein,superficial femoral vein, proximal deep femoral vein, proximal deep femoral vein, popliteal vein and posterior tibial veins. Findings: Deep Venous System:Normal flow, augmentation and compressibility. No echogenic thrombus identified. The contralateral saphenofemoral junction appears unremarkable. Superficial Venous SystemNo superficial thrombophlebitis. Soft tissues: Soft tissues are unremarkable. Impression: Negative for DVT. Reviewed, dictated and finalized at location P. Impression: Negative for DVT.
--- OUTSIDE RECORDS SUMMARY | 2025-08-10 14:33 | XMS_ITS | Clinical Summary ---
Author Organization [facility] Address [address] [place] [address] Care Team Providers Care Piano Player Name Role Phone Kwame Diaz MD Primary Care Provider [phone] Social History Tobacco Use Types Packs/Day Years [...] - 1-dose 75+ series) 2019 COVID-19 Vaccine (3 - 2024-2 6 season) 2025 01/16/2021, 12/26/2020 Influenza Adult (#1) 2025 Meningococcal B Vaccine Aged Out No l onger eligible based on patient's age to complete this topic Meningococcal Vaccine Aged Out No yohan milla eligible based on patient's age to complete this topic RSV Immunizations Under 20 Months Aged Out No longer eligible b ased on patient's age to complete this topic Insurance AETNA MEDICARE Care Teams Piano Player Relationship Specialty Start Date End Date Kwame Diaz MD [address] [place] [place] [address] PCP - General FAMILY PRACTICE 08/21/21
--- OUTSIDE RECORDS SUMMARY | 2025-08-10 14:33 | XMS_ITS | Clinical Summary ---
Author Organization [facility] Address [address] [place] [address] Care Team Providers Care Production Counter Name Role Phone Chi Diaz MD Primary Care Provider [phone] Cirilo Morfin MD Unavailable Allergies Active Allergy Reactions Criticality Noted Date [...] (08/09/2021): Added automatically from request for surgery [id number] Arthropathy 08/09/2021 Overview (08/09/2021): Added automatically from request for surgery [id number] Meningioma 04/24/2018 Immunizations Immunization Administration Dates Next Due Influenza, Trivalent, Preservative Free, Intramu scular 11/20/2013 Influenza, Unspecified 07/05/2017 Surgical History Surgery Date Site/Laterality Comments CT UNLISTED PROCEDURE ABDOME N PERITONEUM & OMENTUM Hernia Repair - (Added by TW Conv) BACK SURGERY Back Surgery - (Added by TW Conv) CT PROSTATECTOMY RETROPUBIC W/WO NERVE SPARING Prostatectomy Retropubic [...] on file Legal Sex Male 3:28 PM PSYCHOMETRIC EXAMINER Gender Identity Not on file Sexual Orientation Not on file Obstetrics History Last Filed Vital Signs Vital Sign Reading Time Taken Comments Blood Pressure 126/67 10/25/2021 8:00 AM PSYCHOMETRIC EXAMINER Pulse 91 10/25/2021 8:00 AM PSYCHOMETRIC EXAMINER Temperature 36.8 C (98.3 F) 10/25/2021 8:00 AM PSYCHOMETRIC EXAMINER Respiratory Rate 18 10/25/2021 8:00 AM PSYCHOMETRIC EXAMINER Oxygen Saturation 98% 10/25/2021 8:00 AM PSYCHOMETRIC EXAMINER Inhaled Oxygen Concentration - - Weight 98.4 kg (216 lb 14.9 oz) 10/24/2021 6:31 AM PSYCHOMETRIC EXAMINER Height 180.3 cm (5' 11) 10/24/2021 6:31 AM PSYCHOMETRIC EXAMINER Body Mass Index 30.26 10/24/2021 6:31 AM PSYCHOMETRIC EXAMINER Plan of Treatment Not on file Medical Devices Implanted Type Area Security Installation Technician Device Identifier Shelf Expiration Date Model / Serial / Lot [employer] [id number] Comprehensive 4.75mm 20mm Fix Angle Lock Hexagonal 3.5mm Screw - [id number] Implanted:Qty: 1 on 10/24/2021 by Cirilo Morfin MD at [facility] Right: Shoulder [employer] [id number] 06/06/2031 [id number] / / [id number] [employer] [id number] Comprehensive Taper Adapter 25mm Mini Baseplate Glenoid Reverse - [id number] Implanted:Qty: 1 on 10/24/2021 by Cirilo Morfin MD at [facility] Right: Shoulder [employer] [id number] 03/14/2031 [id number] / / [id number] [employer] [id number] Tray Humeral Comprehensive Standard Shoulder Reverse - [id number] Implanted:Qty: 1 on 10/24/2021 by Cirilo Morfin MD at [facility] Right: Shoulder [employer] [id number] 08/27/2031 [id number] / / [id number] [employer] [id number] Bearing Humeral Comprehensive Prolong Standard Od40mm Shoulder Reverse - [id number] Implanted:Qty: 1 on 10/24/2021 by Cirilo Morfin MD at [facility] Right: Shoulder [employer] [id number] 03/03/2024 [id number] / / [id number] [employer] [id number] Component Glenoid 40mm Std Rvrs Glenosphere Comprehensive - [id number] Implanted:Qty: 1 on 10/24/2021 by Cirilo Morfin MD at [facility] Right: Shoulder [employer] [id number] 06/03/2031 [id number] / / [id number] [employer] [id number] Comprehensive 6.5mm 20mm Central Hexagonal 3.5mm Screw Bone - [id number] Implanted:Qty: 1 on 10/24/2021 by Cirilo Morfin MD at [facility] Right: Shoulder [employer] [id number] 04/26/2031 [id number] / / [id number] [employer] [id number] Comprehensive 16mm 83mm Shoulder Mini Stem Humeral Porous Reverse - [id number] Implanted:Qty: 1 on 10/24/2021 by Cirilo Morfin MD at [facility] Right: Shoulder [employer] [id number] 01/09/2029 [id number] / / [id number] [employer] [id number] Comprehensive 4.75mm 15mm Variable Angle Nonlock Hexagonal Head - [id number] Implanted:Qty: 1 on 10/24/2021 by Cirilo Morfin MD at [facility] Right: Shoulder [employer] [id number] 07/21/2031 [id number] / / [id number] [employer] 541539 Comprehensive 4.75mm 25mm Variable Angle Nonlock Hexagonal Head - [id number] Implanted:Qty: 1 on 10/24/2021 by Cirilo Morfin MD at [facility] Right: Shoulder [employer] [id number] 08/17/2030 [id number] / / [id number] [employer] [id number] Comprehensive 4.75mm 25mm Fix Angle Lock Hexagonal 3.5mm Screw - [id number] Implanted:Qty: 1 on 10/24/2021 by Cirilo Morfin MD at [facility] Right: Shoulder [employer] [id number] 08/18/2031 [id number] / / [id number] Explanted Type Area Security Installation Technician Device Identifier Shelf Expiration Date Model / Serial / Lot [employer] [id number] Steinmann 3.2mm 9in Guide Pin Orthopedic - [id number] Explanted:Qty: 1 on 10/24/2021 at [facility] Right: Shoulder [employer] [id number] 06/09/2031 [id number] / / [id number] Insurance [facility]NA [facility] Advance Directives For more information, please contact: [phone] * Full Code (Latest Code Status on File) Date Activated Date Inactivated Comments 10/24/2021 11:02 AM 10/25/2021 4:17 PM Care Teams Production Counter Relationship Specialty Start Date End Date Chi Diaz MD [address] [place] [address] PCP - General 01/24/18 Cirilo Morfin MD [address] [facility] [address] [place] [address] Consulting Physician Orthopedic Surgery 10/25/21
== END 2025-08-10 13:37 | disposition home or self-care (01) ==
PROVIDERS: PCP Emergency Medicine; Visit Provider Emergency Medicine
DX: I82.401 Acute embolism and thrombosis of unspecified deep veins of right lower extremity (principal); M79.89 Other specified soft tissue disorders
CPT/HCPCS: 93971

== ENCOUNTER 2025-08-30 15:55 | Emergency (ER) | payer MEDICARE, SELFPAY ==
--- OUTSIDE RECORDS SUMMARY | 2021-12-27 08:15 | XMS_ITS | Continuity of Care Document ---
Author Organization [facility] Address [address] [place] [address] Phone Care Team Providers Care It Support Engineer Name Role Phone Tete Corona Unavailable Unavai lable Allergies, Adverse Reactions, Alerts Substance Reaction Status Criticality morphine Other Active No Information Medications Medication Instructions Dosage Effective Dates (start - stop) Status Comments lisinopril 10 mg-hydrochlorothiazide 12.5 mg tablet - Active trazodone 50 mg tablet - Active naproxen 500 mg tablet - Active multivitamin tablet - Active montelukast 10 mg tablet - Activ e aspirin 81 mg tablet,delayed release - Active Nasacort 55 mcg nasal spray aerosol - Active Procedures Procedure Date Global/Postop followup visit Global/Postop followup visit X-ray exam shoulder complete, minimum 2 views Global/Postop followup visit Office/outpatient visit,[facility] 2020 Advance Directives Directive Yes / No Effective Date File Name No Information Encounters Encounter Description Practice Location Reason(s) For Visit Diagnoses Date Provider Providers Copied on Encounter [facility], [address], [id number], tel:[phone] [facility] right shoulder (chief complaint) Presence of right artificial shoulder joint 2 Dee Epstein. [address] [facility], [place], [place], [id number] , [place]. tel:[phone] Referring Provider: Tete Broderick, [address] [facility] [address] [facility], [place], [address] . tel:[phone] [facility], [address] [address], [place], [place], [id number], tel:[phone] [facility] right shoulder (chief complaint) Presence of right artificial shoulder joint 2 Dee Epstein. [address] [facility] [address], [place], [place], [id number] , [place]. tel:[phone] Referring Provider: Tete Broderick, [address] [place] [address], [place], [address] . tel:[phone] [facility], [address] [place] [address], [id number], [place] tel:[phone] [facility] right shoulder (chief complaint) Presence of right artificial shoulder joint 1 Dee Epstein. [address] [place] [address], [address] [address], [place], [place], [id number] , [place]. tel:[phone] Referring Provider: Tete Broderick, [address] [place] [address], [place], [address] . tel:[phone] Office/outpat ient visit,[facility], [facility], [address] [place] [address], [place], [place], [id number], tel:[phone] [facility] Shoulder (chief complaint) Primary osteoarthriti s, right shoulderArthr opathy, unspecified 1 Navjot Kerr. [address] [place] [address], [place], [place], [id number] , [place]. tel:[phone] Referring Provider: Cirilo Duvall, [address] [address], [place], [address] . tel:[phone] Family History Family Member Type Diagnosis Age At Onset Mother Problem (finding) Heart Disease Brother Problem (finding) Diabetes Brother Problem (finding) Cancer, unknown Brother Problem (finding) Kidney Disease Father Problem (finding) Stroke Brother Problem (finding) Stroke Father Problem (finding) Heart Disease Father Problem (finding) Hypertension Brother Problem (finding) Hypertension Payers Payer name Insurance type Covered democrat ID Kraig lucas(s) [employer] Medicare CI [id number] Social History Type Description Quantity Date Captured Comments Alcohol Use Details Unknown Caffeine Use Details Unknown Tobacco Use Status No Information Smoking Status Former smoker Non-Smoking Tobacco Use Details : No Details Available : No Details Available Sex Male Vital Signs Date / Time: Height Weight BMI Pulse Rate Blood Pressure Temperature Respiratory Rate Body Surface Area Head Circumference Head Circ. Percentile Wt./Carlyle. Percentile BMI percentile Pulse Ox Inhaled Ox 1:06 PM 72.00 in 96.162 kg (212.00 lbs) 28.7 5 kg/m torrey (2) Chief Complaint And Reason For Visit From encounter dated '12/27/2021 13:15'. right shoulder (chief complaint). Description: Fransico returns to the office today for his right shoulder. He is status post right reverse TSA. DOS 10/24/2022. He is doing well and going to PT. Reason For Referral Reason For Referral No Information Plan Of Treatment Date Type Action Status Referral Ordered: X-ray exam shoulder complete, minimum 2 views RT ordered Referral Ordered: CT scan Upper Extrem W/o Contrast RT shoulder ordered History Of Present Illness Encounter Date Complaint History Of Prese nt Illness right shoulder Fransico returns to the office today for his right shoulder. He is status post right reverse TSA. DOS 10/24/2022. He is doing well and going to PT. right shoulder Fransico returns to the office today for his right shoulder. He is status post right reverse TSA. DOS 10/24/2022. He is doing well and going to PT. He is doing his HEP every day and is not taking pain medication. right shoulder Fransico comes in t he office today for his right shoulder. He is status post right reverse TSA. DOS 10/24/2021. He is doing well. He continues to wear his sling and takes pain medication at night. X-rays were obtained in the office today. Shoulder Patient comes in today for right shoulder pain Functional Status Date Functional Assessmen t No Information Instructions Date Instruction Additional Infor mation No Information Assessments Type Assessment Date assessment Presence of right artificial amanda ulder joint impression Doing well. Would vanessa null to cont PT. Orders provided. Follow up prn. Patient Care Teams Name Effective Dates (start - stop) Status Members No Information
--- OUTSIDE RECORDS SUMMARY | 2021-12-27 08:15 | XMS_ITS | Continuity of Care Document ---
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 2020 Advance Directives Directive Yes / No Effective Date File Name No Information Encounters Encounter Description Practice Location Reason(s) For Visit Diagnoses Date Provider Providers Copied on Encounter [facility], [address], [id number], tel:[phone] [facility] right shoulder (chief complaint) Presence of right artificial shoulder joint 2 Dee Epstein. [address] [facility], [place], [place], [id number] , [place]. tel:[phone] Referring Provider: Tete Broderick, [address] [facility] [address] [facility], [place], [address] . tel:[phone] [facility], [address] [address], [place], [place], [id number], tel:[phone] [facility] right shoulder (chief complaint) Presence of right artificial shoulder joint 2 Dee Epstein. [address] [facility], [address] [address], [place], [place], [id number] , [place]. tel:[phone] Referring Provider: Tete Broderick, [address] [place] [address], [place], [address] . tel:[phone] [facility], [address] [place] [address], [id number], [place] tel:[phone] [facility] right shoulder (chief complaint) Presence of right artificial shoulder joint 1 Dee Epstein. [address] [place] [address], [address] [address], [place], [place], [id number] , [place]. tel:[phone] Referring Provider: Tete Broderick, [address] [place] [address], [place], [address] . tel:[phone] Office[facility]pat ient visit,[facility], [facility], [address] [place] [address], [place], [place], [id number], tel:[phone] [facility] Shoulder (chief complaint) Primary osteoarthriti s, right shoulderArthr opathy, unspecified 1 Navjot Kerr. [address] [place] [address], [place], [place], [id number] , [place]. tel:[phone] Referring Provider: Cirilo Duvall, [address] [address], [place], [address] . tel:[phone] Family History Family Member Type Diagnosis Age At Onset Mother Problem (finding) Heart Disease Brother Problem (finding) Diabetes Brother Problem (finding) Cancer, unknown Brother Problem (finding) Kidney Disease Father Problem (finding) Stroke Brother Problem (finding) Stroke Father Problem (finding) Heart Disease Father Problem (finding) Hypertension Brother Problem (finding) Hypertension Payers Payer name Insurance type Covered alliance party ID Kraig lucas(s) [employer] Medicare CI [id number] Social History Type Description Quantity Date Captured [...]
--- NOTE | ~2025-08-30 | US_ITS ---
EXAMINATION:US venous doppler LE RT INDICATION:Concern for DVT. Pain TECHNIQUE: Multiple grayscale, color flow and Doppler images of the right lower extremity deep venous systems were obtained and reviewed. COMPARISON:06/27/2024 FINDINGS: The right common femoral, superficial femoral and popliteal veins demonstrate normal respiratory variation, augmentation and compressibility. Color flow is also seen within the posterior tibial, peroneal, greater saphenous and profunda veins. IMPRESSION: 1: No right lower extremity deep venous thrombosis. If symptoms persist or worsen, consider a short-term follow-up study or additional imaging for further assessment. Reviewed, dictated and finalized at location Q. IMPRESSION: 1: No right lower extremity deep venous thrombosis. If symptoms persist or worsen, consider a short-term follow-up study or additio nal imaging for further assessment.
[2025-08-30 16:05] VITALS: BP 152/78; PULSE 79; RESP 20; TEMP 36.9; O2SAT 98
--- NOTE | 2025-08-30 16:08 | ED.LOWEXIN ---
HPI - Extremity Injury (Lower) General Chief Complaint: Extremity Injury, Lower <LIANA Crane - Last Filed: 08/30/25 16:13> Stated Complaint: R LEG PAIN, HX OF DVT <LIANA Crane - Last Filed: 08/30/25 16:13> Time Seen by Provider: 08/30/25 16:09 <LIANA Crane - Last Filed: 08/30/25 16:13> Focused HPI: Hx of blood clot previously and was on Xarelto. The Xarelto has been weaned to once every 3 days. (Pt chose to wean himself instead of just stopping the med that was suggested by PCP.) Pt started having pain behind the right ankle starting two days ago. No radiation of pain into the lower calf/lower leg. No exacerbating symptoms, and no swelling or redness. No paresthesias and negative Howard's sign. Concern that he may have another blood clot. No dyspnea or CP. GENERAL: Well-appearing, well-nourished, and in no acute distress. HEAD: Normocephalic, atraumatic. EXTREMITY: RLE without any edema, erythema and no palpable cord. Negative Howard's sign. Distal Neurovascluar status is intact. Patient screened in triage and initial orders placed.? ?Additional care and disposition to be based upon?diagnostic testing and treatment. <LIANA Crane - Last Filed: 08/30/25 16:13> Source: patient <LIANA Crane - Last Filed: 08/30/25 16:13> Mode of arrival: ambulatory <LIANA Crane - Last Filed: 08/30/25 16:13> Limitations: no limitations <LIANA Crane - Last Filed: 08/30/25 16:13> History of Present Illness HPI Narrative: Agree with HPI. <Lowell Perez MD - Last Filed: 08/30/25 18:57> Related Data Home Medications: Home Medications ?Medication ?Instructions ?Recorded ?Confirmed ?Last Taken ?Type triamcinolone acetonide 55 mcg 1 spray intranasal DAILY PRN 08/17/20 06/29/25 03/09/24 21:00 History nasal spray aerosol (Nasacort) Congestion glucosamine 500 1 cap PO DAILY 09/11/21 06/29/25 03/03/24 History jk-wnkmlwfhb-zwmsprjn comp 400 mg-D3 667 unit-C-Mn cap multivitamin 1 tablet PO DAILY 09/11/21 06/29/25 03/03/24 History fexofenadine 180 mg tablet 180 mg PO DAILY 06/18/22 06/29/25 03/09/24 History montelukast 10 mg tablet 10 mg PO DAILY 02/19/24 06/29/25 03/09/24 History <LIANA Crane - Last Filed: 08/30/25 16:13> Allergies/Adverse Reactions: Allergies Allergy/AdvReac Type Severity Reaction Status Date / Time morphine AdvReac Mild Nausea Verified 08/30/25 16:05 <LIANA Crane - Last Filed: 08/30/25 16:13> Review of Systems Constitutional: Constitutional: Reports no additional constitutional complaints <Lowell Perez MD - Last Filed: 08/30/25 18:57> Cardiovascular: Cardiovascular: Reports no additional cardiovascular complaints <Lowell Perez MD - Last Filed: 08/30/25 18:57> Respiratory: Respiratory: Reports no additional respiratory complaints <Lowell Perez MD - Last Filed: 08/30/25 18:57> Musculoskeletal: Musculoskeletal: Reports no additional musculoskeletal complaints <Lowell Perez MD - Last Filed: 08/30/25 18:57> [facility] Past Medical History Medical History: Medical History Post-operative pain Hematuria Osteoarthrosis Left leg pain Gastro-esophageal reflux disease without esophagitis Sinobronchitis Pure hypercholesterolemia Psychosexual dysfunction with inhibited sexual excitement Bronchitis, not specified as acute or chronic Allergic rhinitis, cause unspecified Arthritis of left hip Arthritis, lumbar spine Seizure Degenerative arthritis of knee, bilateral with chondrocalcinosis Greater trochanteric bursitis of left hip Thyroid nodule, toxic or with hyperthyroidism Prostate cancer BMI 29.0-29.9,adult Arthritis of knee Chondrocalcinosis of left knee Gastro-esophageal reflux disease without esophagitis Essential (primary) hypertension Malignant neoplasm of brain, unspecified Occlusion and stenosis of unspecified carotid artery doppler in 2018 was normal <LIANA Crane - Last Filed: 08/30/25 16:13> Surgical History Surgical History: Surgical History History of total left hip arthroplasty (~03/10/24) History of partial thyroidectomy History of right shoulder replacement Dr. Morfin 2020 H/O brain surgery 2012, Dr. Bass H/O prostatectomy 1999 cancer History of back surgery H/O hernia repair <LIANA Crane - Last Filed: 08/30/25 16:13> Family History Family History: Family History Sibling Diabetes mellitus Family history of hypercholesterolemia Hypertension Family history of cardiovascular disease Cerebrovascular accident Family history of chronic obstructive pulmonary disease Father Family history of cardiovascular disease Mother Family history of cardiovascular disease Other Family history of osteoarthritis <LIANA Crane - Last Filed: 08/30/25 16:13> Social History Social History: Social History (Updated 06/29/25 @ 13:57 by Andreea Salazar MA) Smoking packs per day: 1 Smoking cigarettes per day: 20.0 Years smoked: 30 Smoking pack-years: 30.00 Smoking status: Former smoker Second hand tobacco smoke exposure: No Additional smoking assessment comments: DENIES ANY FORM OF TOBACCO USE Alcohol intake: current Substance use: never Substance use type: does not use Do You Feel Safe in your Home?: Yes Lack of Transportation: YES Lack of Food: Never True Current Housing: Decline to Answer Concerned About Future Housing: Decline to Answer Difficulty Paying Gas/Electric Bills: Decline to Answer Difficulty Paying for Meds: Decline to Answer Currently Unemployed: Decline to Answer Education: Decline to Answer Difficulty w/ Childcare or Family Care: Decline to Answer Living arrangements: with family Additional living arrangements comments: [place] Occupation/Education: retired Gender identity (if verbalized by the patient): Male Spiritual care concerns: No <LIANA Crane Last Filed: 08/30/25 16:13> Exam Narrative: GENERAL: Well-appearing, well-nourished, and in no acute distress. HEAD: Normocephalic, atraumatic. ENT: Mucous membranes moist. HEART: Regular rate and rhythm. Normal peripheral pulses. EXTREMITIES: Normal range of motion. No edema. Negative Homans sign SKIN: Warm, dry, no rash. NEURO: Alert and oriented x3. PSYCH: Normal mood and affect. <Lowell Perez MD - Last Filed: 08/30/25 18:57> Course Course Emergency Course: Patient informed of results. Discharge home. Nonspecific pain behind the right lateral malleolus that is not reproducible on my exam. <Lowell Perez MD - Last Filed: 08/30/25 18:57> Vital Signs Vital signs: Vital Signs Temperature 98.5 F 08/30/25 16:05 Pulse Rate 79 08/30/25 16:05 Respiratory Rate 20 08/30/25 16:05 Blood Pressure 152/78 H 08/30/25 16:05 Pulse Oximetry 98 08/30/25 16:05 Oxygen Delivery Room Air 08/30/25 16:05 Temperature 98.5 F 08/30/25 16:05 Pulse Rate 79 08/30/25 16:05 Respiratory Rate 20 08/30/25 16:05 Blood Pressure 152/78 H 08/30/25 16:05 Pulse Oximetry 98 08/30/25 16:05 Oxygen Delivery Room Air 08/30/25 16:05 <Shandra Patterson APN-Shubham - Last Filed: 08/30/25 16:13> Vital Signs Temperature 98.5 F 08/30/25 16:05 Pulse Rate 79 08/30/25 16:05 Respiratory Rate 20 08/30/25 16:05 Blood Pressure 152/78 H 08/30/25 16:05 Pulse Oximetry 98 08/30/25 16:05 Oxygen Delivery Room Air 08/30/25 16:05 Temperature 98.5 F 08/30/25 16:05 Pulse Rate 79 08/30/25 16:05 Respiratory Rate 20 08/30/25 16:05 Blood Pressure 152/78 H 08/30/25 16:05 Pulse Oximetry 98 08/30/25 16:05 Oxygen Delivery Room Air 08/30/25 16:05 <Lowell Perez MD - Last Filed: 08/30/25 18:57> MDM - Extremity Injury (Lower) Lab Data Labs: Lab Results 08/30/25 Range/Units 17:06 PT 20.1 H (11.1-14.7) Seconds INR 1.8 APTT 34.4 (22.3-36.8) Seconds <LIANA Crane - Last Filed: 08/30/25 16:13> Lab Results 08/30/25 Range/Units 17:06 PT 20.1 H (11.1-14.7) Seconds INR 1.8 APTT 34.4 (22.3-36.8) Seconds <Lowell Perez MD - Last Filed: 08/30/25 18:57> Imaging Data Radiologist's impression: ITS Impressions Venous Doppler Study 08/30/25 16:48 IMPRESSION: 1: No right lower extremity deep venous thrombosis. If symptoms persist or worsen, consider a short-term follow-up study or additional imaging for further assessment. <Lowell Perez MD - Last Filed: 08/30/25 18:57> Discharge Plan Discharge Clinical Impression: Ankle pain <LIANA Crane - Last Filed: 08/30/25 16:13> Patient Disposition: Home <LIANA Crane - Last Filed: 08/30/25 16:13> Condition: Stable <LIANA Crane - Last Filed: 08/30/25 16:13> Instructions: P.R.I.C.E. Treatment (ED) <LIANA Crane - Last Filed: 08/30/25 16:13> Additional Instructions: Return the ER if you have chest pain shortness of breath, your leg is swollen and red, or you have additional concerns. <LIANA Crane - Last Filed: 08/30/25 16:13> Patient Language: Faroese <LIANA Crane - Last Filed: 08/30/25 16:13> Prescriptions: No Action fexofenadine 180 mg tablet 180 mg PO DAILY triamcinolone acetonide [Nasacort] 55 mcg aerosol,spray 1 spray intranasal DAILY PRN (Reason: Congestion) Rx Instructions: administer into each nostril montelukast 10 mg tablet 10 mg PO DAILY multivitamin Tablet 1 tablet PO DAILY vvoi-orpplc-hswbnvvd-D3-C-Mn 500-400-667 mg-mg-unit Capsule 1 cap PO DAILY naproxen 500 mg tablet 500 mg PO BID PRN (Reason: Pain) Qty: 180 0RF Rx Instructions: TAKE 1 TABLET TWICE A DAY NEEDED FOR PAIN lisinopril-hydrochlorothiazide 10-12.5 mg tablet 1 tablet PO QAM Qty: 90 2RF Rx Instructions: TAKE 1 TABLET DAILY trazodone 50 mg tablet 100 mg PO HS Qty: 180 1RF Rx Instructions: TAKE 2 TABLETS AT BEDTIME levothyroxine 112 mcg tablet See Rx Instructions .ROUTE .COMPLEX Qty: 90 2RF Dose Instruction: TAKE 1 TABLET BY MOUTH EVERY DAY Rx Instructions: TAKE 1 TABLET BY MOUTH EVERY DAY <LIANA Crane - Last Filed: 08/30/25 16:13> Follow-up/Referrals: Gen Marvin MD [Primary Care Provider, Internal Medicine] - 1 Week <LIANA Crane - Last Filed: 08/30/25 16:13>
--- OUTSIDE RECORDS SUMMARY | 2025-08-30 17:07 | XMS_ITS | Clinical Summary ---
Author Organization [facility] Address [address] [place] [id number] Care Team Providers Care Construction Stonemason Name Role Phone Kwame Diaz MD Primary Care Provider Social History Tobacco Use Types Packs/Day Years [...] 2025 01/16/2021, 12/26/2020 Influenza Adult (#1) 2025 Hepatitis A Vaccines Aged Out No long er eligible based on patient's age to complete this topic Meningococcal B Vaccine Aged Out No l onger eligible based on patient's age to complete this topic Meningococcal Vaccine Aged Out No yohan milla eligible based on patient's age to complete this topic RSV Immunizations Under 20 Months Aged Out No longer eligible b ased on patient's age to complete this topic Insurance AETNA MEDICARE Care Teams Construction Stonemason Relationship Specialty Start Date End Date Kwame Diaz MD [address] [place] [address] PCP - General FAMILY PRACTICE 08/21/21
--- OUTSIDE RECORDS SUMMARY | 2025-08-30 17:07 | XMS_ITS | Clinical Summary ---
Author Organization [facility] Address [address] [place] [address] Care Team Providers Care Pool Table Mechanic Name Role Phone Chi Diaz MD Primary Care Provider [phone] Cirilo Morfin MD Unavailable [phone] Allergies Active Allergy Reactions Criticality Noted Date [...] (08/09/2021): Added automatically from request for surgery [id number] Arthropathy 08/09/2021 Overview (08/09/2021): Added automatically from request for surgery [id number] Meningioma 04/24/2018 Immunizations Immunization Administration Dates Next Due Influenza, Trivalent, Preservative Free, Intramu scular 11/20/2013 Influenza, Unspecified 07/05/2017 Surgical History Surgery Date Site/Laterality Comments [place] UNLISTED PROCEDURE ABDOME N PERITONEUM & OMENTUM Hernia Repair - (Added by TW Conv) BACK SURGERY Back Surgery - (Added by TW Conv) [place] PROSTATECTOMY RETROPUBIC W/WO NERVE SPARING Prostatectomy Retropubic [...] on file Legal Sex Male 3:28 PM 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 Gender Identity Not on file Sexual Orientation Not on file Obstetrics History Last Filed Vital Signs Vital Sign Reading Time Taken Comments Blood Pressure 126/67 10/25/2021 8:00 AM CASINO 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 Pulse 91 10/25/2021 8:00 AM CASINO 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 Temperature 36.8 C (98.3 F) 10/25/2021 8:00 AM CASINO 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 Respiratory Rate 18 10/25/2021 8:00 AM CASINO 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 Oxygen Saturation 98% 10/25/2021 8:00 AM CASINO 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 Inhaled Oxygen Concentration - - Weight 98.4 kg (216 lb 14.9 oz) 10/24/2021 6:31 AM CASINO 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 Height 180.3 cm (5' 11) 10/24/2021 6:31 AM CASINO 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 Body Mass Index 30.26 10/24/2021 6:31 AM CASINO 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 Plan of Treatment Not on file Medical Devices Implanted Type Area City Secretary Device Identifier Shelf Expiration Date Model / Serial / Lot [employer] [id number] Comprehensive 4.75mm 20mm Fix Angle Lock Hexagonal 3.5mm Screw - [id number] Implanted:Qty: 1 on 10/24/2021 by Cirilo Morfin MD at [facility] Right: Shoulder [employer] [id number] 06/06/2031 [id number] / / [id number] [employer] [id number] Comprehensive Taper Adapter 25mm Mini Baseplate Glenoid Reverse - [id number] Implanted:Qty: 1 on 10/24/2021 by Cirilo Morfin MD at [facility] Right: Shoulder [employer] [id number] 03/14/2031 [id number] / / [id number] [employer] [id number] Tray Humeral Comprehensive Standard Shoulder Reverse - [id number] Implanted:Qty: 1 on 10/24/2021 by Cirilo Morfin MD at [facility] Right: Shoulder [employer] [id number] 08/27/2031 [id number] / / [id number] [employer] [id number] Bearing Humeral Comprehensive Prolong Standard Od40mm Shoulder Reverse - [id number] Implanted:Qty: 1 on 10/24/2021 by Cirilo Morfin MD at [facility] Right: Shoulder [employer] [id number] 03/03/2024 [id number] / / [id number] [employer] [id number] Component Glenoid 40mm Std Rvrs Glenosphere Comprehensive - [id number] Implanted:Qty: 1 on 10/24/2021 by Cirilo Morfin MD at [facility] Right: Shoulder [employer] [id number] 06/03/2031 [id number] / / [id number] [employer] [id number] Comprehensive 6.5mm 20mm Central Hexagonal 3.5mm Screw Bone - [id number] Implanted:Qty: 1 on 10/24/2021 by Cirilo Morfin MD at [facility] Right: Shoulder [employer] [id number] 04/26/2031 [id number] / / [id number] [employer] [id number] Comprehensive 16mm 83mm Shoulder Mini Stem Humeral Porous Reverse - [id number] Implanted:Qty: 1 on 10/24/2021 by Cirilo Morfin MD at [facility] Right: Shoulder [employer] [id number] 01/09/2029 [id number] / / [id number] [employer] [id number] Comprehensive 4.75mm 15mm Variable Angle Nonlock Hexagonal Head - [id number] Implanted:Qty: 1 on 10/24/2021 by Cirilo Morfin MD at [facility] Right: Shoulder [employer] [id number] 07/21/2031 [id number] / / [id number] [employer] [id number] Comprehensive 4.75mm 25mm Variable Angle Nonlock Hexagonal Head - [id number] Implanted:Qty: 1 on 10/24/2021 by Cirilo Morfin MD at [facility] Right: Shoulder [employer] [id number] 08/17/2030 [id number] / / [id number] [employer] [id number] Comprehensive 4.75mm 25mm Fix Angle Lock Hexagonal 3.5mm Screw - [id number] Implanted:Qty: 1 on 10/24/2021 by Cirilo Morfin MD at [facility] Right: Shoulder [employer] [id number] 08/18/2031 [id number] / / [id number] Explanted Type Area City Secretary Device Identifier Shelf Expiration Date Model / Serial / Lot [employer] [id number] Steinmann 3.2mm 9in Guide Pin Orthopedic - [id number] Explanted:Qty: 1 on 10/24/2021 at [facility] Right: Shoulder [employer] [id number] 06/09/2031 [id number] / / [id number] [facility] Advance Directives For more information, please contact: [phone] * Full Code (Latest Code Status on File) Date Activated Date Inactivated Comments 10/24/2021 11:02 AM 10/25/2021 4:17 PM Care Teams Pool Table Mechanic Relationship Specialty Start Date End Date Chi Diaz MD [address] [place] [address] PCP - General 01/24/18 Cirilo Morfin MD [address] [facility] [address] [place] [address] Consulting Physician Orthopedic Surgery 10/25/21
[2025-08-30 17:23] LABS: INR 1.8; Prothrombin Time 20.1 Seconds (11.1-14.7)
[2025-08-30 17:24] LABS: Partial Thromboplastin Time 34.4 Seconds (22.3-36.8)
--- OUTSIDE RECORDS SUMMARY | 2025-08-30 18:35 | XMS_ITS | Clinical Summary ---
Author Organization [facility] Address [address] [place] [address] Care Team Providers Care Double End Sewer Name Role Phone Chi Diaz MD Primary Care Provider [phone] Cirilo Morfin MD Unavailable [phone] Allergies Active Allergy Reactions Criticality Noted Date [...] (08/09/2021): Added automatically from request for surgery [id number] Arthropathy 08/09/2021 Overview (08/09/2021): Added automatically from request for surgery [id number] Meningioma 04/24/2018 Immunizations Immunization Administration Dates Next Due Influenza, Trivalent, Preservative Free, Intramu scular 11/20/2013 Influenza, Unspecified 07/05/2017 Surgical History Surgery Date Site/Laterality Comments IN UNLISTED PROCEDURE ABDOME N PERITONEUM & OMENTUM Hernia Repair - (Added by TW Conv) BACK SURGERY Back Surgery - (Added by TW Conv) IN PROSTATECTOMY RETROPUBIC W/WO NERVE SPARING Prostatectomy Retropubic [...] on file Legal Sex Male 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 Gender Identity Not on file Sexual Orientation Not on file Obstetrics History Last Filed Vital Signs Vital Sign Reading Time Taken Comments Blood Pressure 126/67 10/25/2021 8:00 AM LOAN ADMINISTRATOR Pulse 91 10/25/2021 8:00 AM LOAN ADMINISTRATOR Temperature 36.8 C (98.3 F) 10/25/2021 8:00 AM LOAN ADMINISTRATOR Respiratory Rate 18 10/25/2021 8:00 AM LOAN ADMINISTRATOR Oxygen Saturation 98% 10/25/2021 8:00 AM LOAN ADMINISTRATOR Inhaled Oxygen Concentration - - Weight 98.4 kg (216 lb 14.9 oz) 10/24/2021 6:31 AM LOAN ADMINISTRATOR Height 180.3 cm (5' 11) 10/24/2021 6:31 AM LOAN ADMINISTRATOR Body Mass Index 30.26 10/24/2021 6:31 AM LOAN ADMINISTRATOR Plan of Treatment Not on file Medical Devices Implanted Type Area Museum Docent Device Identifier Shelf Expiration Date Model / Serial / Lot [employer] [id number] Comprehensive 4.75mm 20mm Fix Angle Lock Hexagonal 3.5mm Screw - [id number] Implanted:Qty: 1 on 10/24/2021 by Cirilo Morfin MD at [facility] Right: Shoulder [employer] [id number] 06/06/2031 [id number] / / [id number] [employer] [id number] Comprehensive Taper Adapter 25mm Mini Baseplate Glenoid Reverse - [id number] Implanted:Qty: 1 on 10/24/2021 by Cirilo Morfin MD at [facility] Right: Shoulder [employer] [id number] 03/14/2031 [id number] / / [id number] [employer] [id number] Tray Humeral Comprehensive Standard Shoulder Reverse - [id number] Implanted:Qty: 1 on 10/24/2021 by Cirilo Morfin MD at [facility] Right: Shoulder [employer] [id number] 08/27/2031 [id number] / / [id number] [employer] [id number] Bearing Humeral Comprehensive Prolong Standard Od40mm Shoulder Reverse - [id number] Implanted:Qty: 1 on 10/24/2021 by Cirilo Morfin MD at [facility] Right: Shoulder [employer] [id number] 03/03/2024 [id number] / / [id number] [employer] [id number] Component Glenoid 40mm Std Rvrs Glenosphere Comprehensive - [id number] Implanted:Qty: 1 on 10/24/2021 by Cirilo Morfin MD at [facility] Right: Shoulder [employer] [id number] 06/03/2031 [id number] / / [id number] [employer] [id number] Comprehensive 6.5mm 20mm Central Hexagonal 3.5mm Screw Bone - [id number] Implanted:Qty: 1 on 10/24/2021 by Cirilo Morfin MD at [facility] Right: Shoulder [employer] [id number] 04/26/2031 [id number] / / [id number] [employer] [id number] Comprehensive 16mm 83mm Shoulder Mini Stem Humeral Porous Reverse - [id number] Implanted:Qty: 1 on 10/24/2021 by Cirilo Morfin MD at [facility] Right: Shoulder [employer] [id number] 01/09/2029 [id number] / / [id number] [employer] [id number] Comprehensive 4.75mm 15mm Variable Angle Nonlock Hexagonal Head - [id number] Implanted:Qty: 1 on 10/24/2021 by Cirilo Morfin MD at [facility] Right: Shoulder [employer] [id number] 07/21/2031 [id number] / / [id number] [employer] [id number] Comprehensive 4.75mm 25mm Variable Angle Nonlock Hexagonal Head - [id number] Implanted:Qty: 1 on 10/24/2021 by Cirilo Morfin MD at [facility] Right: Shoulder [employer] [id number] 08/17/2030 [id number] / / [id number] [employer] [id number] Comprehensive 4.75mm 25mm Fix Angle Lock Hexagonal 3.5mm Screw - [id number] Implanted:Qty: 1 on 10/24/2021 by Cirilo Morfin MD at [facility] Right: Shoulder [employer] [id number] 08/18/2031 [id number] / / [id number] Explanted Type Area Museum Docent Device Identifier Shelf Expiration Date Model / Serial / Lot [employer] [id number] Steinmann 3.2mm 9in Guide Pin Orthopedic - [id number] Explanted:Qty: 1 on 10/24/2021 at [facility] Right: Shoulder [employer] [id number] 06/09/2031 [id number] / / [id number] [facility] Advance Directives For more information, please contact: [phone] * Full Code (Latest Code Status on File) Date Activated Date Inactivated Comments 10/24/2021 11:02 AM 10/25/2021 4:17 PM Care Teams Double End Sewer Relationship Specialty Start Date End Date Chi Diaz MD [address] [place] [address] PCP - General 01/24/18 Cirilo Morfin MD [address] [facility] [address] [place] [address] Consulting Physician Orthopedic Surgery 10/25/21
== END 2025-08-30 19:05 | disposition home or self-care (01) ==
PROVIDERS: Nurse Practitioner Adult Health; Emergency Provider Emergency Medicine; PCP Emergency Medicine
DX: M25.571 Pain in right ankle and joints of right foot (principal); M79.661 Pain in right lower leg; I10 Essential (primary) hypertension; E89.0 Postprocedural hypothyroidism; E78.00 Pure hypercholesterolemia, unspecified; K21.9 Gastro-esophageal reflux disease without esophagitis; M16.12 Unilateral primary osteoarthritis, left hip; M17.0 Bilateral primary osteoarthritis of knee; M47.816 Spondylosis without myelopathy or radiculopathy, lumbar region; Z96.612 Presence of left artificial shoulder joint; Z96.642 Presence of left artificial hip joint; Z85.46 Personal history of malignant neoplasm of prostate; Z85.841 Personal history of malignant neoplasm of brain; Z87.891 Personal history of nicotine dependence; Z90.79 Acquired absence of other genital organ(s); Z79.01 Long term (current) use of anticoagulants; Z79.899 Other long term (current) drug therapy
CPT/HCPCS: 36415; 85610; 85730; 93971; 99284